=== PATIENT | male | born 1960 | race Caucasian/White ===

== ENCOUNTER 2017-09-27 19:55 | Inpatient (IN) ==
[2017-09-27] MEDS ORDERED: Ipratropium/Albuterol Neb 3 ML IH ONE (20:22)
[2017-09-27] MEDS ORDERED: methylPREDNISolone 125 MG/2 ML VIAL IVP ONE (20:22)
[2017-09-27 20:50] LABS: Basophils % 0.4 %; Eosinophils % 0.4 %; Hematocrit 45.6 % (37.5-50.1); Hemoglobin 15.5 g/dL (12.9-16.9); Immature Granulocytes % 0.8 % (0-4); Lymphocytes # 0.6 K/mcL (0.6-4.6); Lymphocytes % 11.6 %; Mean Corpuscular Hemoglobin 30.8 pg (28.0-33.3); Mean Corpuscular Volume 90.5 fL (83.0-100.0); Mean Platelet Volume 10.6 fL (9.4-12.4); Monocytes # 0.7 K/mcL (0.0-1.3); Monocytes % 13.5 %; Neutrophils # 3.8 K/mcL (1.6-8.9); Platelet Count 150 K/mcL (140-400); Red Blood Count 5.04 M/mcL (4.19-5.50); Red Cell Distribution Width 12.1 % (11.5-14.5); Segmented Neutrophils % 73.3 %
[2017-09-27] MEDS ORDERED: 0.9 % Sodium Chloride 1,000 ML IVC ONE (20:54)
[2017-09-27 21:11] LABS: BUN/Creatinine Ratio 12 (6-26); Blood Urea Nitrogen 11 mg/dL (6-20); Calcium 8.2 mg/dL (8.6-10.3); Chloride 96 mEq/L (98-107); Glucose 340 mg/dL (70-105); Osmolality,Calculated 283 (280-300); Potassium 3.3 mEq/L (3.5-5.1); Sodium 130 mEq/L (136-145); eGFR For African Americans > 60 (> 60); eGFR For Non-African Americans > 60 (> 60)
--- NOTE | 2017-09-27 22:15 | Emergency Department Note ---
Disposition Clinical Impression: Acute exacerbation of chronic obstructive airways disease, Acute respiratory failure Disposition: Admitted As Inpatient Condition: Fair Time of Disposition: 23:39 SOB HPI - General Chief Complaint: ED Shortness of Breath/Dyspnea Stated Complaint: "chest tightness, sob, dizziness" Source: EMS Limitations: no limitations Nursing Notes Reviewed: Yes Vital Signs Reviewed: Yes - History of Present Illness Mr. Baltazar, 56-year-old male, presents from home for evaluation of dyspnea. Onset 3 days ago progressive. Now includes intermittent lightheadedness (no syncope) and chest tightness. Patient denies chest pain. Patient has history of COPD and has dyspnea with exertion. Not improved with his home inhalers. At baseline, patient uses nose a little oxygen. ROS: Positive: As above Negative: Fever, chills, nausea, vomiting, chest pain, palpitations, unusual back pain, changes in bowel or bladder - Related Data Allergies Allergy/AdvReac Type Severity Reaction Status Date / Time gabapentin Allergy Rash Verified 09/27/17 20:06 NSAIDS (Non-Steroidal Allergy Itching Verified 09/27/17 20:08 Anti-Inflamma amantadine [From Symmetrel] AdvReac Hallucinati Verified 09/27/17 20:09 ng All systems ED: reviewed and negative except as stated. Past Medical History - Past Medical History Medical history: Reports: COPD Psychiatric history: Reports: anxiety, depression, PTSD - Social History Smoking Status: Current every day smoker Smokeless Tobacco Status: No Alcohol use: Reports: none Drug use: Reports: none Physical Exam Vital Signs Reviewed General: Patient is alert, oriented, and in moderate distress-he is tachypneic and diaphoretic. HEENT: No facial asymmetry. Head is normocephalic and atraumatic. PERRLA, EOMI. oral mucosa moist. Trachea midline. Cardiovascular: Heart regular rate and rhythm without clicks, rubs, gallops, or murmurs. No JVD. PMI nondisplaced. Bilateral radial pulses 2/4 equal. No pedal edema. Respiratory: Symmetric chest rise with good respiratory effort. Prolonged expiratory phase. Bilateral breath sounds have scattered wheeze with no crackles or rhonchi. Abdomen: Obese. Bowel sounds present normoactive x-4 quadrants. Abdomen is soft, nondistended, and nontender. Musculoskeletal: Spontaneously moving all extremities. Neuro: Alert and oriented x4. Sensation light touch intact. Psych: Patient's affect is appropriate for situation. - General Limitations: no limitations General appearance: alert Course Course Narrative: Patient presents in mild respiratory distress. He appears diaphoretic-he explains this as having worn his coat in the back of a hot ambulance. After a double dose of duo nebs, patient symptomatically feels no different however his lung sounds have improved. He is requiring 3 L nasal cannula supplemental oxygen. When laying in bed on room air, he desaturates to 89%. He has no home oxygen. Pneumonia unlikely in the setting of an unremarkable chest x-ray, no crackles on pulmonary exam, no fever. Patient is agreeable to admission for continued pulmonary support for acute exacerbation of COPD. I discussed the patient with the admitting hospitalist, Dr. Freeman, who agrees to accept the patient for continued evaluation and management. Chest X-Ray 09/27/17 20:22 IMPRESSION: No acute process. D/ / Wili Dial MD / Wili Dial MD Interpreting Provider: Wili Dial MD Vital Signs Temperature 98.7 F 09/27/17 20:10 Pulse Rate 110 09/27/17 20:10 Respiratory Rate 20 09/27/17 20:10 Blood Pressure 106/69 09/27/17 20:10 O2 Sat by Pulse Oximetry 96 09/27/17 20:10 Temperature 98.7 F 09/27/17 20:10 Pulse Rate 94 09/27/17 22:00 Respiratory Rate 16 09/27/17 23:34 Blood Pressure 116/71 09/27/17 23:34 O2 Sat by Pulse Oximetry 96 09/27/17 22:00 Oxygen Delivery Oxygen Delivery Nasal Cannula Shortness of Breath/Dyspnea - Lab Data Lab results reviewed: Yes I reviewed the patient's lab results. Result diagrams: 09/27/17 20:37 09/27/17 20:37 Lab Results 09/27/17 09/27/17 09/27/17 Range/Units 20:37 20:37 20:37 WBC 5.2 (4.3-11.1) K/mcL RBC 5.04 (4.19-5.50) M/mcL Hgb 15.5 (12.9-16.9) g/dL Hct 45.6 (37.5-50.1) % MCV 90.5 (83.0-100.0) fL MCH 30.8 (28.0-33.3) pg MCHC 34.0 (31.6-35.5) g/dL RDW 12.1 (11.5-14.5) % Plt Count 150 (140-400) K/mcL MPV 10.6 (9.4-12.4) fL Immature Gran % 0.8 (0-4) % Seg Neutrophils % 73.3 % Lymphocytes % 11.6 % Monocytes % 13.5 % Eosinophils % 0.4 % Basophils % 0.4 % Neutrophils # 3.8 (1.6-8.9) K/mcL Lymphocytes # 0.6 (0.6-4.6) K/mcL Monocytes # 0.7 (0.0-1.3) K/mcL Eosinophils # 0.0 (0.0-0.6) K/mcL Basophils # 0.0 (0.0-0.2) K/mcL Sodium 130 L (136-145) mEq/L Potassium 3.3 L (3.5-5.1) mEq/L Chloride 96 L (98-107) mEq/L Carbon Dioxide 23 (23-29) mEq/L BUN 11 (6-20) mg/dL Creatinine 0.89 (0.70-1.30) mg/dL Est GFR ( Amer) > 60 (> 60) Est GFR (Non-Af Amer) > 60 (> 60) BUN/Creatinine Ratio 12 (6-26) Glucose 340 H (70-105) mg/dL Calculated Osmolality 283 (280-300) Lactic Acid 1.9 (0.5-2.2) mmol/L Calcium 8.2 L (8.6-10.3) mg/dL Troponin I (< 0.04) ng/mL B-Natriuretic Peptide (Less than 100) pg/mL 09/27/17 09/27/17 Range/Units 20:37 20:37 WBC (4.3-11.1) K/mcL RBC (4.19-5.50) M/mcL Hgb (12.9-16.9) g/dL Hct (37.5-50.1) % MCV (83.0-100.0) fL MCH (28.0-33.3) pg MCHC (31.6-35.5) g/dL RDW (11.5-14.5) % Plt Count (140-400) K/mcL MPV (9.4-12.4) fL Immature Gran % (0-4) % Seg Neutrophils % % Lymphocytes % % Monocytes % % Eosinophils % % Basophils % % Neutrophils # (1.6-8.9) K/mcL Lymphocytes # (0.6-4.6) K/mcL Monocytes # (0.0-1.3) K/mcL Eosinophils # (0.0-0.6) K/mcL Basophils # (0.0-0.2) K/mcL Sodium (136-145) mEq/L Potassium (3.5-5.1) mEq/L Chloride (98-107) mEq/L Carbon Dioxide (23-29) mEq/L BUN (6-20) mg/dL Creatinine (0.70-1.30) mg/dL Est GFR ( Amer) (> 60) Est GFR (Non-Af Amer) (> 60) BUN/Creatinine Ratio (6-26) Glucose (70-105) mg/dL Calculated Osmolality (280-300) Lactic Acid (0.5-2.2) mmol/L Calcium (8.6-10.3) mg/dL Troponin I < 0.03 (< 0.04) ng/mL B-Natriuretic Peptide 14 (Less than 100) pg/mL - Radiology Data Radiology results reviewed: Yes I reviewed the patient's radiology results. - EKG Data EKG attestation: Yes I reviewed and interpreted this EKG. Attestation Statement - Attestation Attestation: I, Mode Anderson, examined this patient and my medical decision-making was reviewed with the ELECTRIC METER INSTALLER HELPER/PA/Advanced Practice Nurse/Resident Physician. I agree with the documented findings, disposition and treatment plan as described except to the extent set forth below. 56-year-old male presents emergency department with acute onset shortness of breath. Symptoms have have been worsening over the past 3 days. Symptoms feel similar to previous COPD exacerbations. Patient does have wheezing on bilateral posterior lung marie on initial evaluation. Wheezing improved with DuoNeb to the emergency department however it is still present. Patient does not wear oxygen at home however he is satting 89% the emergency department. Initial troponin was negative. Patient will be admitted to the hospital for further care and evaluation.
[2017-09-27 23:13] LABS: Carbon Dioxide 23 mEq/L (23-29)
[2017-09-28] MEDS ORDERED: D5% in Water 1,000 ML IVC PRN (02:21)
[2017-09-28] MEDS ORDERED: Dextrose Gel 15 GM/37.5 ML TUBE PO PRN ×2 (02:21)
[2017-09-28] MEDS ORDERED: Ipratropium/Albuterol Neb 3 ML IH PRN (02:21)
[2017-09-28] MEDS ORDERED: Naloxone 0.4 MG/ML INJ IVP PRN (02:21)
[2017-09-28] MEDS ORDERED: *HR* Dextrose 50 % in Water (Syg) 50 ML SYRINGE IVP PRN (02:21)
[2017-09-28] MEDS ORDERED: NON-FORMULARY MEDICATION 1 EACH EACH (Quetiapine Fumarate [Seroquel] 400 MG) PO SCH (02:30)
[2017-09-28] MEDS: *HR* OxyCODONE Immed Rel 15 MG TABLET PO PRN ×3 (03:01→20:05)
[2017-09-28] MEDS: clonazePAM 1 MG TABLET PO PRN ×3 (03:01→20:05)
--- NOTE | 2017-09-28 03:02 | Internal Med History&Physical ---
<Fidencio Garcia - Last Filed: 09/28/17 02:42> Date of Encounter: 09/28/17 Time of Encounter: 01:00 Assessment and Plan (1) Acute respiratory failure Current visit: Yes Status: Acute Hypoxia resolved with O2 administration CXR without acute disease EKG, troponin, lactic acid, and BNP normal Ordered Influenza A and B PCR Continue monitoring and supplemental O2 Treating for COPD exacerbation Qualifiers: Respiratory failure complication: hypoxia Qualified Code(s): J96.01 - Acute respiratory failure with hypoxia (2) Acute exacerbation of chronic obstructive airways disease Current visit: Yes Status: Acute Hypoxia improved with O2 administration Wheezing improved with duonebs and steroids Treating with solu-medrol q6h and breathing treatments as needed Levofloxacin 500 mg iv Supplemental O2 (3) Hypokalemia Current visit: Yes Status: Acute Ordered PO potassium 40 meq once Will monitor (4) PTSD (post-traumatic stress disorder) Current visit: Yes Status: Chronic Stable Continue home medications (5) Anxiety Current visit: Yes Status: Chronic Stable Continue home medications (6) Hypothyroidism Current visit: Yes Status: Chronic Stable Continue home levothyroxine Qualifiers: Hypothyroidism type: unspecified Qualified Code(s): E03.9 - Hypothyroidism , unspecified (7) Tobacco abuse Current visit: Yes Status: Acute Long history, between 40 and 100 pack years Advised complete cessation now that patient has not been able to smoke for a few days Gave patient flyer with number for LDCT lung cancer screening (8) Alcohol abuse, in remission Current visit: Yes Status: Acute Used to drink up to a case per day Strong family history Patient reports last drink in 2011 Ordered CIWA (9) DVT prophylaxis Current visit: Yes Status: Acute Heparin subq q12h Internal Medicine - H&P: HPI Chief complaint: SOB Admitted From: Home Plans for Post Hospital Care: Home History of present illness: Mr. Baltazar is a 56 year old male who presented with worsening shortness of breath that started on Tuesday. In the three days prior to this, the patient complained of "flu symptoms" including cough, myalgias, subjective fever, and chills. He had no substantial SOB at this time. Those symptoms began resolving on their own before the SOB started. His home albuterol did help somewhat. He complained of additional symptoms of chest tightness over the last day and wheezing over the past week. He decided to report to the ER after walking to the bathroom caused a severe amount of dyspnea. He denies chest pain and palpitations. Once in the ER, he was found to be hypoxemic into the 80s and was placed on supplemental O2 at 4L, which improved his O2 saturation. He received 2 breathing treatments, which he says have not improved his SOB substantially but decreased his wheezing. He was down to 2L/min when I spoke with him. His PMH is significant for COPD not requiring home oxygen, hypothryoidism, PTSD , anxiety, and spinal stenosis. He has been smoking for 40+ years, between 1-2.5 ppd. He also has a history of alcoholism, drinking up to 1 case per day, though this is in remission, with his last drink in 2011. Past Med Surg Social Fam HX - Past Medical History Medical history: COPD Psychiatric history: anxiety, depression, PTSD - Past Surgical History Surgical History: cholecystectomy - Social History Smoking Status: Current every day smoker Packs per day: 1 Smokeless Tobacco Status: No Alcohol use: none Drug use: none - Family History Grandmother Hx Family Cardiac Disorders: Yes Hx Family Endocrine Disorder: Yes (DM) Mother Living Status: Age at : 60 Hx Family Respiratory Disorders: Yes (emphysema) Internal Medicine - H&P: Meds FLUoxetine HCl [Prozac] 40 mg PO BID 09/28/17 [History] Levothyroxine [Synthroid] 175 mcg PO DAILY 09/28/17 [History] OxyCODONE Immed Rel [Roxicodone 15 MG] 15 mg PO Q8HR PRN 09/28/17 [History] Quetiapine Fumarate [Seroquel] 400 mg PO DAILY 09/28/17 [History] clonazePAM [Klonopin] 1 mg PO TID PRN 09/28/17 [History] 3 Allergy/AdvReac Type Severity Reaction Status Date / Time gabapentin Allergy Rash Verified 09/27/17 20:06 NSAIDS (Non-Steroidal Allergy Itching Verified 09/27/17 20:08 Anti-Inflamma amantadine [From Symmetrel] AdvReac Hallucinati Verified 09/27/17 20:09 ng All Systems PM: A 10-system review of systems was performed and is negative for pertinent findings except as documented above in the HPI. Review of systems: As per HPI - Constitutional Vitals: Temp Pulse Resp BP Pulse Ox 98.1 F 90 17 137/85 94 09/27/17 23:50 09/27/17 23:50 09/27/17 23:50 09/27/17 23:50 09/27/17 23:50 General appearance: Present: cooperative, A&O X 3, pleasant, no acute distress, obese, answers questions appropriately - Head Head exam: Present: atraumatic, normal inspection, normocephalic - ENT ENT exam: Present: mucous membranes moist - Neck Neck exam general surgery: Present: trachea midline - Respiratory Respiratory exam: Present: decreased breath sounds, wheezes (few, scattered). Absent: accessory muscle use, rales, respiratory distress, rhonchi - Cardiovascular Cardiovascular exam: Present: RRR, +S1, +S2 - GI/Abdominal GI/Abdominal exam: Present: soft, no peritoneal signs - Extremities Exam Extremities exam: Absent: pedal edema - Psychiatric Psychiatric exam: Present: normal affect, normal mood. Absent: agitated, anxious - Skin Skin exam: Present: dry, warm Internal Med - H&P Results - Labs CBC & Chem 7: 09/27/17 20:37 09/27/17 20:37 <Alex Freeman - Last Filed: 09/28/17 06:33> Date of Encounter: 09/28/17 Time of Encounter: 05:45 Past Med Surg Social Fam HX - Past Medical History Attestation: Yes The following information was validated with the patient. Source: patient, old records reviewed Medical history: COPD - Past Surgical History Surgical History: cholecystectomy - Social History Smoking Status: Current every day smoker Alcohol use: none Drug use: none Current living situation: Home, With Family Activity Level: Independent ambulation - Constitutional Vitals: Temp Pulse Resp BP Pulse Ox 98.4 F 89 17 116/75 92 09/28/17 02:38 09/28/17 02:38 09/28/17 02:38 09/28/17 02:38 09/28/17 02:38 General appearance: Present: cooperative, mild distress, A&O X 3, pleasant, answers questions appropriately - Head Head exam: Present: atraumatic, normal inspection - Eye Eye exam: Present: EOMI, PERRL. Absent: scleral icterus Pupils: Present: normal accommodation - ENT ENT exam: Present: mucous membranes dry, normal exam - Neck Neck exam general surgery: Present: full ROM, supple. Absent: tenderness, nuchal rigidity - Respiratory Respiratory exam: Present: accessory muscle use, decreased breath sounds, prolonged expiratory phase, respiratory distress, wheezes (tight diffuse wheezes ), tachypnea - Cardiovascular Cardiovascular exam: Present: distant heart sounds, RRR, +S1, +S2. Absent: diastolic murmur, systolic murmur - GI/Abdominal GI/Abdominal exam: Present: normal bowel sounds, soft. Absent: hepatomegaly, mass, splenomegaly, tenderness - Extremities Exam Extremities exam: Present: normal capillary refill, warm, radial pulses palpable and symmetrical. Absent: calf tenderness, tenderness - Back Exam Back exam: Absent: CVA tenderness (L), CVA tenderness (R) - Neurological Exam Neurological exam: Present: alert, CN II-XII intact, oriented X3, no focal deficits - Psychiatric Psychiatric exam: Present: normal affect, normal mood - Skin Skin exam: Present: dry, warm. Absent: rash Internal Med - H&P Results - Labs CBC & Chem 7: 09/27/17 20:37 09/27/17 20:37 - EKG Data -: EKG Interpreted by Myself - EKG Data Prior EKG available for review: yes EKG comments: 09/28/17 06:20 Sinus tachycardia; initial EKG by EMS suggests SVT - Diagnostic Studies Chest x-ray Status: image reviewed by me (negative) - Attending Attestation I discussed patient [place], PMH, ROS, lab data, and exam findings with Dr. Garcia. I then saw and examined patient independently as well. Patient is working a little hard to breathe, but he feels much better on oxygen and after several aerosols. If he exerts himself, however, he starts coughing, wheezing, and develops profound dyspnea. I asked Dr. Garcia to order Influenza testing, and he is + for Influenza A. I will add Tamiflu to his regimen. Meanwhile, we' ll continue treatment measures as detailed by Dr. Garcia. Other than my comments above and noted exam findings, I agree with Dr. Garcia' s assessment and plan.
[2017-09-28] MEDS ORDERED: *HR* LORazepam 2 MG/ML VIAL IVP PRN ×3 (04:12)
[2017-09-28 05:51] LABS: Influenza A PCR Positive (Negative); Influenza B PCR Negative (Negative); Resp. Syncytial Virus PCR Negative (Negative)
[2017-09-28] MEDS: *HR* Heparin 5,000 UNIT/ML VIAL SQ SCH ×2 (06:14→18:02)
[2017-09-28] MEDS: MethylPREDNISolone 40 MG/ML VIAL IVP SCH ×4 (06:14→23:10)
[2017-09-28 06:31] LABS: Hematocrit 42.9 % (37.5-50.1); Hemoglobin 14.6 g/dL (12.9-16.9); Mean Corpuscular Hemoglobin 31.1 pg (28.0-33.3); Mean Corpuscular Volume 91.5 fL (83.0-100.0); Mean Platelet Volume 11.2 fL (9.4-12.4); Platelet Count 138 K/mcL (140-400); Red Blood Count 4.69 M/mcL (4.19-5.50); Red Cell Distribution Width 12.3 % (11.5-14.5)
[2017-09-28 07:00] LABS: BUN/Creatinine Ratio 12 (6-26); Blood Urea Nitrogen 10 mg/dL (6-20); Calcium 8.1 mg/dL (8.6-10.3); Carbon Dioxide 29 mEq/L (23-29); Chloride 94 mEq/L (98-107); Glucose 414 mg/dL (70-105); Osmolality,Calculated 285 (280-300); Potassium 4.2 mEq/L (3.5-5.1); Sodium 129 mEq/L (136-145); eGFR For African Americans > 60 (> 60); eGFR For Non-African Americans > 60 (> 60)
[2017-09-28] MEDS: Levofloxacin 500 MG/100 ML 500 MG/100 ML BAG IVPB SCH (09:06)
[2017-09-28] MEDS: FLUoxetine 20 MG CAPSULE PO SCH ×2 (09:06→20:05)
[2017-09-28] MEDS: Insulin LISPRO 300 UNITS/3 ML VIAL SQ SCH ×3 (09:22→18:03)
--- NOTE | 2017-09-28 14:27 | Electrocardiograph Report ---
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
--- NOTE | 2017-09-28 19:41 | Internal Med Progress Note ---
Date of Encounter: 09/28/17 Time of Encounter: 18:00 - Assessment and plan (1) Acute respiratory failure Current Visit: Yes Status: Acute Assessment and plan: Patient presented with hypoxia S PO2 80%. Most likely related to COPD exacerbation as well as influenza. We will continue with oxygen titrated to maintain SPO2 greater than 92% Qualifiers: Respiratory failure complication: hypoxia Qualified Code(s): J96.01 - Acute respiratory failure with hypoxia (2) Influenza A Current Visit: Yes Status: Acute Assessment and plan: Patient's influenza swab was positive for influenza A. He has been experiencing chills and malaise cough shortness of breath. Patient has been initiated on Tamiflu and will continue for the next 10 days We will continue with oxygen maintaining SPO2 greater than 92% Integument bronchodilators With Tylenol for fever and myalgia (3) Acute exacerbation of chronic obstructive airways disease Current Visit: Yes Status: Acute Assessment and plan: Patient has been experiencing wheezing and hypoxia will continue with bronchodilators as well as oxygen patient continues to have SPO2 93% on 2 L normally he does not require oxygen supplementation Continue with Solu-Medrol IV Continue Levaquin (4) Tobacco abuse Current Visit: Yes Status: Acute Assessment and plan: Encouraged patient to stop smoking offered nicotine patch but patient declined at this time. (5) Anxiety Current Visit: Yes Status: Chronic Assessment and plan: We will continue with home medications (6) DVT prophylaxis Current Visit: Yes Status: Chronic Assessment and plan: Heparin subcutaneous - Time Spent With Patient less than 15 minutes - Subjective Interval history: Patient initially presented with worsening shortness of breath that started on Tuesday he also had flulike symptoms with general malaise and cough. He was hypoxic on presentation with SPO2 in the 80s and requiring supplemental oxygen he normally does not require oxygen. He is a smoker he does have a history of alcoholism however he has not drink since 2011. Influenza swab was positive for influenza A Presently patient denies any shortness of breath he has a nonproductive cough he continues to require oxygen supplementation with SPO2 only 93-94% on 2 L nasal cannula. - Constitutional Vitals: Temp Pulse Resp BP Pulse Ox 97.3 F L 92 20 145/93 93 09/28/17 19:31 09/28/17 19:31 09/28/17 19:31 09/28/17 19:31 01/31/18 19:31 General appearance: Present: cooperative, mild distress, A&O X 3, pleasant, answers questions appropriately - Head Head exam: Present: atraumatic, normocephalic - Eye Eye exam: Present: PERRL, conjuntiva pink, sclera anicteric Pupils: Present: PERRL - Respiratory Respiratory exam: Present: wheezes. Absent: accessory muscle use, rales, rhonchi - Cardiovascular Cardiovascular exam: Present: RRR, +S1, +S2. Absent: diastolic murmur, gallop, rubs, systolic murmur - GI/Abdominal GI/Abdominal exam: Present: normal bowel sounds, soft, no peritoneal signs. Absent: distended, tenderness - Extremities Exam Extremities exam: Present: warm, radial pulses palpable and symmetrical. Absent : calf tenderness, cyanotic, pedal edema - Neurological Exam Neurological exam: Present: CN II-XII intact, oriented X3, no focal deficits. Absent: pronater drift, facial droop, speech deficit - Skin Skin exam: Present: dry, intact Internal Medicine: Result - Labs CBC & Chem 7: 09/28/17 05:20 09/28/17 05:20 Labs: Short CBC 09/28/17 Range/Units 05:20 WBC 2.2 L D (4.3-11.1) K/mcL Hgb 14.6 (12.9-16.9) g/dL Hct 42.9 (37.5-50.1) % Plt Count 138 L (140-400) K/mcL BMP 09/28/17 05:20 Sodium 129 L Potassium 4.2 D Chloride 94 L Carbon Dioxide 29 BUN 10 Creatinine 0.86 Glucose 414 H Calcium 8.1 L Consult Discharge Plan - Plan Referrals: Tammy Bullock, HEALTH EDUCATION AIDE [Primary Care Provider] -
[2017-09-28] MEDS ORDERED: Insulin LISPRO 300 UNITS/3 ML VIAL SQ SCH (21:00)
[2017-09-29] MEDS: clonazePAM 1 MG TABLET PO PRN ×2 (04:08→13:11)
[2017-09-29] MEDS: *HR* OxyCODONE Immed Rel 15 MG TABLET PO PRN ×2 (04:08→13:10)
[2017-09-29] MEDS: *HR* Heparin 5,000 UNIT/ML VIAL SQ SCH ×2 (05:34→18:02)
[2017-09-29] MEDS: MethylPREDNISolone 40 MG/ML VIAL IVP SCH ×3 (05:34→18:01)
[2017-09-29] MEDS: FLUoxetine 20 MG CAPSULE PO SCH ×2 (08:15→21:22)
[2017-09-29] MEDS: Levofloxacin 500 MG/100 ML 500 MG/100 ML BAG IVPB SCH (08:15)
[2017-09-29] MEDS: Insulin LISPRO 300 UNITS/3 ML VIAL SQ SCH ×5 (08:26→21:23)
[2017-09-29 09:10] LABS: Basophils % 0.1 %; Hematocrit 45.7 % (37.5-50.1); Hemoglobin 14.9 g/dL (12.9-16.9); Immature Granulocytes % 0.5 % (0-4); Lymphocytes # 1.1 K/mcL (0.6-4.6); Lymphocytes % 14.6 %; Mean Corpuscular HGB Conc 32.6 g/dL (31.6-35.5); Mean Corpuscular Hemoglobin 30.6 pg (28.0-33.3); Mean Corpuscular Volume 93.8 fL (83.0-100.0); Mean Platelet Volume 10.9 fL (9.4-12.4); Monocytes # 0.5 K/mcL (0.0-1.3); Monocytes % 7.1 %; Neutrophils # 5.8 K/mcL (1.6-8.9); Platelet Count 174 K/mcL (140-400); Red Blood Count 4.87 M/mcL (4.19-5.50); Red Cell Distribution Width 12.1 % (11.5-14.5); Segmented Neutrophils % 77.7 %
[2017-09-29 11:44] LABS: BUN/Creatinine Ratio 23 (6-26); Blood Urea Nitrogen 21 mg/dL (6-20); Calcium 8.7 mg/dL (8.6-10.3); Carbon Dioxide 25 mEq/L (23-29); Chloride 98 mEq/L (98-107); Glucose 415 mg/dL (70-105); Osmolality,Calculated 297 (280-300); Potassium 4.2 mEq/L (3.5-5.1); Sodium 133 mEq/L (136-145); eGFR For African Americans > 60 (> 60); eGFR For Non-African Americans > 60 (> 60)
--- NOTE | 2017-09-29 19:42 | Internal Med Progress Note ---
Date of Encounter: 09/29/17 Time of Encounter: 11:00 - Assessment and plan (1) Acute respiratory failure Current Visit: Yes Status: Acute Assessment and plan: Patient continues to have hypoxia on room air with SPO2 80s. Most likely related to COPD exacerbation as well as influenza. We will continue with oxygen titrated to maintain SPO2 greater than 92% 6 minute walk test for home oxygen qualification Qualifiers: Respiratory failure complication: hypoxia Qualified Code(s): J96.01 - Acute respiratory failure with hypoxia (2) Influenza A Current Visit: Yes Status: Acute Assessment and plan: Tamiflu day 3 will continue for the next 10 days We will continue with oxygen maintaining SPO2 greater than 92% Continue bronchodilators Tylenol for fever and myalgia (3) Acute exacerbation of chronic obstructive airways disease Current Visit: Yes Status: Acute Assessment and plan: Wheezing improved however hypoxia continues- will continue with bronchodilators as well as oxygen patient continues to have SPO2 93% on 2 L normally he does not require oxygen supplementation-6 minute walk test Continue with Solu-Medrol IV Continue Levaquin (4) Tobacco abuse Current Visit: Yes Status: Acute Assessment and plan: Encouraged patient to stop smoking offered nicotine patch but patient declined at this time. (5) Anxiety Current Visit: Yes Status: Chronic Assessment and plan: We will continue with home medications (6) DVT prophylaxis Current Visit: Yes Status: Chronic Assessment and plan: Heparin subcutaneous - Time Spent With Patient less than 15 minutes - Subjective Interval history: Patient continues to require oxygen supplementation. SPO2 is dropping down to the 80s without oxygen. His lung sounds have improved no wheezing noted He denies any chest pain shortness of breath he states he feels very fatigued and achy. He does have nonproductive cough He is hemodynamically stable at this time - Constitutional Vitals: Temp Pulse Resp BP Pulse Ox 97.8 F 95 16 145/77 93 09/29/17 15:56 09/29/17 15:56 09/29/17 15:56 09/29/17 15:56 09/29/17 15:56 General appearance: Present: cooperative, mild distress, A&O X 3, pleasant, answers questions appropriately - Head Head exam: Present: atraumatic, normocephalic - Eye Eye exam: Present: PERRL, conjuntiva pink, sclera anicteric Pupils: Present: PERRL - Neck Neck exam general surgery: Present: supple, trachea midline. Absent: lymphadenopathy - Respiratory Respiratory exam: Present: CTAB. Absent: accessory muscle use, rales, rhonchi, wheezes - Cardiovascular Cardiovascular exam: Present: RRR, +S1, +S2. Absent: diastolic murmur, gallop, rubs, systolic murmur - GI/Abdominal GI/Abdominal exam: Present: normal bowel sounds, soft, no peritoneal signs. Absent: distended, tenderness - Extremities Exam Extremities exam: Present: warm, radial pulses palpable and symmetrical. Absent : calf tenderness, cyanotic, pedal edema - Neurological Exam Neurological exam: Present: CN II-XII intact, oriented X3, no focal deficits. Absent: pronater drift, facial droop, speech deficit - Skin Skin exam: Present: dry, intact Internal Medicine: Result - Labs CBC & Chem 7: 09/29/17 08:51 09/29/17 10:42 Labs: Short CBC 09/29/17 Range/Units 08:51 WBC 7.5 D (4.3-11.1) K/mcL Hgb 14.9 (12.9-16.9) g/dL Hct 45.7 (37.5-50.1) % Plt Count 174 (140-400) K/mcL Neutrophils # 5.8 (1.6-8.9) K/mcL BMP 09/29/17 10:42 Sodium 133 L Potassium 4.2 Chloride 98 Carbon Dioxide 25 BUN 21 H Creatinine 0.93 Glucose 415 H Calcium 8.7 Consult Discharge Plan - Plan Referrals: Tammy Bullock CNP [Primary Care Provider] - 10/06/17 9:00 am
[2017-09-30] MEDS: clonazePAM 1 MG TABLET PO PRN ×3 (00:16→16:50)
[2017-09-30] MEDS: *HR* OxyCODONE Immed Rel 15 MG TABLET PO PRN ×3 (00:16→16:50)
[2017-09-30] MEDS: MethylPREDNISolone 40 MG/ML VIAL IVP SCH ×4 (00:16→17:00)
[2017-09-30] MEDS: *HR* Heparin 5,000 UNIT/ML VIAL SQ SCH ×2 (06:11→16:59)
[2017-09-30] MEDS: Levofloxacin 500 MG/100 ML 500 MG/100 ML BAG IVPB SCH (08:28)
[2017-09-30] MEDS: FLUoxetine 20 MG CAPSULE PO SCH ×2 (08:28→21:25)
[2017-09-30] MEDS: Insulin LISPRO 300 UNITS/3 ML VIAL SQ SCH ×5 (08:30→21:37)
[2017-09-30] MEDS: Ipratropium/Albuterol Neb 3 ML IH SCH ×3 (15:52→23:04)
[2017-09-30 16:16] LABS: Hematocrit 42.1 % (37.5-50.1); Hemoglobin 13.8 g/dL (12.9-16.9); Mean Corpuscular HGB Conc 32.8 g/dL (31.6-35.5); Mean Corpuscular Hemoglobin 30.5 pg (28.0-33.3); Mean Corpuscular Volume 92.9 fL (83.0-100.0); Platelet Count 171 K/mcL (140-400); Red Blood Count 4.53 M/mcL (4.19-5.50); Red Cell Distribution Width 12.1 % (11.5-14.5)
[2017-09-30 16:39] LABS: BUN/Creatinine Ratio 19 (6-26); Blood Urea Nitrogen 18 mg/dL (6-20); Calcium 8.7 mg/dL (8.6-10.3); Carbon Dioxide 31 mEq/L (23-29); Chloride 98 mEq/L (98-107); Glucose 352 mg/dL (70-105); Osmolality,Calculated 294 (280-300); Potassium 4.8 mEq/L (3.5-5.1); Sodium 134 mEq/L (136-145); eGFR For African Americans > 60 (> 60); eGFR For Non-African Americans > 60 (> 60)
[2017-09-30 16:55] LABS: Lymphocytes # 1.5 K/mcL (0.6-4.6); Monocytes # 0.4 K/mcL (0.0-1.3); Neutrophils # 8.6 K/mcL (1.6-8.9); Platelet Estimate Normal (Normal)
[2017-09-30 16:56] LABS: Reactive Lymphocytes Present (Not Present)
--- NOTE | 2017-09-30 17:11 | Internal Med Progress Note ---
Date of Encounter: 09/30/17 Time of Encounter: 15:00 - Assessment and plan (1) Acute respiratory failure Current Visit: Yes Status: Acute Assessment and plan: Patient continues to have hypoxia on room air with SPO2 80s. Most likely related to COPD exacerbation as well as influenza. Patient drop in SPO2 without oxygen at rest and on ambulation he becomes extremely short of breath he will require home oxygen upon discharge Qualifiers: Respiratory failure complication: hypoxia Qualified Code(s): J96.01 - Acute respiratory failure with hypoxia (2) Influenza A Current Visit: Yes Status: Acute Assessment and plan: Tamiflu day 4 will continue for the next 10 days We will continue with oxygen maintaining SPO2 greater than 92% Continue bronchodilators Tylenol for fever and myalgia (3) Acute exacerbation of chronic obstructive airways disease Current Visit: Yes Status: Acute Assessment and plan: No wheezing noted at this time however hypoxia continues- will continue with bronchodilators as well as oxygen patient continues to have SPO2 93% on 2 L normally he does not require oxygen supplementation-failed 6 minute walk test Continue with Solu-Medrol IV Continue Levaquin Duo nebs every 4 hours We will obtain chest x-ray rule out any possible pulmonary edema (4) Tobacco abuse Current Visit: Yes Status: Chronic Assessment and plan: Encouraged patient to stop smoking offered nicotine patch but patient declined at this time. (5) Anxiety Current Visit: Yes Status: Chronic Assessment and plan: We will continue with home medications (6) DVT prophylaxis Current Visit: Yes Status: Chronic Assessment and plan: Heparin subcutaneous (7) Diabetes mellitus Current Visit: No Status: Chronic Assessment and plan: We hold metformin for now Accu-Cheks before meals at bedtime sliding scale insulin high-dose due to steroid use. He continues to have blood sugars 300 we will add basal insulin as well as a nutritional coverage for now while receiving steroids Qualifiers: Diabetes mellitus type: type 2 Diabetes mellitus complication status: without complication Diabetes mellitus assisted insulin use: without assisted use Qualified Code(s): E11.9 - Type 2 diabetes mellitus without complications - Time Spent With Patient less than 15 minutes - Subjective Interval history: Patient continues to require supplemental oxygen he becomes very hypoxic and short of breath without it during ambulation. Sats dropped down to 80s. His lung sounds have improved no wheezing he does state that he has occasional wheezes shortness of breath on exertion dry nonproductive cough and fatigue. He denies any chest pain at this time sats continued to be 90 and 92% on 2 L nasal cannula - Constitutional Vitals: Temp Pulse Resp BP Pulse Ox 97.6 F 84 18 152/89 92 09/30/17 15:42 09/30/17 15:42 09/30/17 15:55 09/30/17 15:42 09/30/17 15:55 General appearance: Present: cooperative, mild distress, A&O X 3, pleasant, answers questions appropriately - Head Head exam: Present: atraumatic, normocephalic - Eye Eye exam: Present: PERRL, conjuntiva pink, sclera anicteric Pupils: Present: PERRL - Neck Neck exam general surgery: Present: supple, trachea midline. Absent: lymphadenopathy - Respiratory Respiratory exam: Present: CTAB. Absent: accessory muscle use, rales, rhonchi, wheezes - Cardiovascular Cardiovascular exam: Present: RRR, +S1, +S2. Absent: diastolic murmur, gallop, rubs, systolic murmur - GI/Abdominal GI/Abdominal exam: Present: normal bowel sounds, soft, no peritoneal signs. Absent: distended, tenderness - Extremities Exam Extremities exam: Present: warm, radial pulses palpable and symmetrical. Absent : calf tenderness, cyanotic, pedal edema - Neurological Exam Neurological exam: Present: CN II-XII intact, oriented X3, no focal deficits. Absent: pronater drift, facial droop, speech deficit - Skin Skin exam: Present: dry, intact Internal Medicine: Result - Labs CBC & Chem 7: 09/30/17 15:58 09/30/17 15:58 Labs: Short CBC 09/30/17 Range/Units 15:58 WBC 10.7 (4.3-11.1) K/mcL Hgb 13.8 (12.9-16.9) g/dL Hct 42.1 (37.5-50.1) % Plt Count 171 (140-400) K/mcL Neutrophils # 8.6 (1.6-8.9) K/mcL BMP 09/30/17 15:58 Sodium 134 L Potassium 4.8 Chloride 98 Carbon Dioxide 31 H BUN 18 Creatinine 0.95 Glucose 352 H Calcium 8.7 Consult Discharge Plan - Plan Referrals: Tammy Bullock, ELEMENTARY EDUCATOR [Primary Care Provider] - 10/06/17 9:00 am
[2017-09-30] MEDS ORDERED: Insulin DETEMIR 100 UNIT/ML X5UNITS SQ SCH (21:00)
[2017-10-01] MEDS: clonazePAM 1 MG TABLET PO PRN ×3 (00:47→16:59)
[2017-10-01] MEDS: *HR* OxyCODONE Immed Rel 15 MG TABLET PO PRN ×3 (00:47→16:59)
[2017-10-01] MEDS: Ipratropium/Albuterol Neb 3 ML IH SCH ×6 (03:54→23:00)
[2017-10-01 04:09] LABS: Basophils % 0.1 %; Hematocrit 38.8 % (37.5-50.1); Hemoglobin 13.2 g/dL (12.9-16.9); Immature Granulocytes % 0.8 % (0-4); Lymphocytes # 1.5 K/mcL (0.6-4.6); Lymphocytes % 15.7 %; Mean Corpuscular Hemoglobin 30.8 pg (28.0-33.3); Mean Corpuscular Volume 90.4 fL (83.0-100.0); Mean Platelet Volume 11.1 fL (9.4-12.4); Monocytes # 0.7 K/mcL (0.0-1.3); Monocytes % 7.5 %; Platelet Count 169 K/mcL (140-400); Red Blood Count 4.29 M/mcL (4.19-5.50); Segmented Neutrophils % 75.9 %
[2017-10-01 04:35] LABS: Neutrophils # 7.4 K/mcL (1.6-8.9); Platelet Estimate Normal (Normal)
[2017-10-01 04:44] LABS: BUN/Creatinine Ratio 21 (6-26); Blood Urea Nitrogen 16 mg/dL (6-20); Calcium 8.5 mg/dL (8.6-10.3); Carbon Dioxide 30 mEq/L (23-29); Chloride 98 mEq/L (98-107); Glucose 375 mg/dL (70-105); Osmolality,Calculated 293 (280-300); Potassium 4.3 mEq/L (3.5-5.1); Sodium 133 mEq/L (136-145); eGFR For African Americans > 60 (> 60); eGFR For Non-African Americans > 60 (> 60)
[2017-10-01] MEDS: MethylPREDNISolone 40 MG/ML VIAL IVP SCH ×2 (05:35→18:10)
[2017-10-01] MEDS: *HR* Heparin 5,000 UNIT/ML VIAL SQ SCH ×2 (05:35→18:10)
[2017-10-01] MEDS: Insulin LISPRO 300 UNITS/3 ML VIAL SQ SCH ×8 (09:00→22:32)
[2017-10-01] MEDS: FLUoxetine 20 MG CAPSULE PO SCH ×2 (09:01→21:25)
[2017-10-01] MEDS: Levofloxacin 500 MG/100 ML 500 MG/100 ML BAG IVPB SCH (09:08)
[2017-10-01] MEDS ORDERED: Insulin DETEMIR 100 UNIT/ML X5UNITS SQ SCH ×2 (14:58→15:15)
[2017-10-01] MEDS ORDERED: Insulin LISPRO 300 UNITS/3 ML VIAL SQ SCH (14:58)
--- NOTE | 2017-10-01 15:18 | Internal Med Progress Note ---
Date of Encounter: 10/01/17 Time of Encounter: 15:15 - Assessment and plan (1) Acute respiratory failure Current Visit: Yes Status: Acute Assessment and plan: Patient continues to have hypoxia on room air with SPO2 80s. Most likely related to COPD exacerbation as well as influenza. Patient drop in SPO2 without oxygen at rest and on ambulation he becomes extremely short of breath he will require home oxygen upon discharge Patient at times will ambulate around the room without oxygen can be considered very short of breath. Advised patient to use oxygen at all times Qualifiers: Respiratory failure complication: hypoxia Qualified Code(s): J96.01 - Acute respiratory failure with hypoxia (2) Influenza A Current Visit: Yes Status: Acute Assessment and plan: Tamiflu day 5 will continue for the next 10 days We will continue with oxygen maintaining SPO2 greater than 90% Continue bronchodilators Tylenol for fever and myalgia (3) Acute exacerbation of chronic obstructive airways disease Current Visit: Yes Status: Acute Assessment and plan: No wheezing noted at this time however hypoxia continues- will continue with bronchodilators as well as oxygen patient continues to have SPO2 93% on 2 L normally he does not require oxygen supplementation-failed 6 minute walk test Continue with Solu-Medrol IV Continue Levaquin Duo nebs every 4 hours Chest x-ray does not show pneumonia (4) Tobacco abuse Current Visit: Yes Status: Chronic Assessment and plan: Encouraged patient to stop smoking offered nicotine patch but patient declined at this time. (5) Anxiety Current Visit: Yes Status: Chronic Assessment and plan: We will continue with home medications (6) DVT prophylaxis Current Visit: Yes Status: Chronic Assessment and plan: Heparin subcutaneous (7) Diabetes mellitus Current Visit: No Status: Chronic Assessment and plan: We hold metformin for now Accu-Cheks before meals at bedtime sliding scale insulin high-dose due to steroid use. Blood sugars have steadily climbed. Patient is on steroids however he has also been noncompliant with diet drinking regular soda and chocolate milk. Advised nursing staff to get patient's regular soda only diet or water. Educated the patient on the importance of glucose control. We will increase basal insulin 20 units as well as pre-meal insulin. Continue with high scale sliding scale Qualifiers: Diabetes mellitus type: type 2 Diabetes mellitus complication status: without complication Diabetes mellitus terminal makeup operator insulin use: without terminal makeup operator use Qualified Code(s): E11.9 - Type 2 diabetes mellitus without complications - Time Spent With Patient less than 15 minutes - Subjective Interval history: Patient continues to require supplemental oxygen he becomes hypoxic without oxygen. Patient frequently removes oxygen advised him to keep oxygen on. No wheezes noted at this time cough has improved no fevers or chills. Patient's blood sugar has steadily increased apparently patient has been noncompliant with diet drinking regular sodas and chocolate milk. Advised nursing staff to only give him diet or water. Informed the patient the importance of diabetic diet and blood sugar control. - Constitutional Vitals: Temp Pulse Resp BP Pulse Ox 98.0 F 95 18 131/80 92 10/01/17 12:07 10/01/17 12:07 10/01/17 12:07 10/01/17 12:07 10/01/17 12:07 General appearance: Present: cooperative, mild distress, A&O X 3, pleasant, answers questions appropriately - Head Head exam: Present: atraumatic, normocephalic - Eye Eye exam: Present: PERRL, conjuntiva pink, sclera anicteric Pupils: Present: PERRL - Neck Neck exam general surgery: Present: supple, trachea midline. Absent: lymphadenopathy - Cardiovascular Cardiovascular exam: Present: RRR, +S1, +S2. Absent: diastolic murmur, gallop, rubs, systolic murmur - GI/Abdominal GI/Abdominal exam: Present: normal bowel sounds, soft, no peritoneal signs. Absent: distended, tenderness - Extremities Exam Extremities exam: Present: warm, radial pulses palpable and symmetrical. Absent : calf tenderness, cyanotic, pedal edema - Neurological Exam Neurological exam: Present: CN II-XII intact, oriented X3, no focal deficits. Absent: pronater drift, facial droop, speech deficit - Skin Skin exam: Present: dry, intact Internal Medicine: Result - Labs CBC & Chem 7: 10/01/17 03:28 10/01/17 03:28 Labs: Short CBC 09/30/17 10/01/17 Range/Units 15:58 03:28 WBC 10.7 9.7 (4.3-11.1) K/mcL Hgb 13.8 13.2 (12.9-16.9) g/dL Hct 42.1 38.8 (37.5-50.1) % Plt Count 171 169 (140-400) K/mcL Neutrophils # 8.6 7.4 (1.6-8.9) K/mcL BMP 09/30/17 10/01/17 15:58 03:28 Sodium 134 L 133 L Potassium 4.8 4.3 Chloride 98 98 Carbon Dioxide 31 H 30 H BUN 18 16 Creatinine 0.95 0.76 Glucose 352 H 375 H Calcium 8.7 8.5 L - Impressions Impressions Chest X-Ray 09/30/17 15:51 IMPRESSION: Ill-defined opacity in the left base, possibly representing pneumonia. D/ / Moncho Azevedo MD / Moncho Azevedo MD Interpreting Provider: Moncho Azevedo MD Consult Discharge Plan - Plan Referrals: Tammy Bullock CNP [Primary Care Provider] - 10/06/17 9:00 am
[2017-10-01] MEDS: Insulin DETEMIR 100 UNIT/ML X5UNITS SQ SCH (22:31)
[2017-10-02] MEDS: clonazePAM 1 MG TABLET PO PRN ×3 (00:22→17:41)
[2017-10-02] MEDS: *HR* OxyCODONE Immed Rel 15 MG TABLET PO PRN ×3 (00:22→17:41)
[2017-10-02] MEDS: Ipratropium/Albuterol Neb 3 ML IH SCH ×6 (03:23→23:18)
[2017-10-02] MEDS: MethylPREDNISolone 40 MG/ML VIAL IVP SCH (05:20)
[2017-10-02] MEDS: *HR* Heparin 5,000 UNIT/ML VIAL SQ SCH ×2 (05:20→17:57)
[2017-10-02 07:49] LABS: Basophils % 0.2 %; Hematocrit 39.6 % (37.5-50.1); Hemoglobin 13.5 g/dL (12.9-16.9); Immature Granulocytes % 1.4 % (0-4); Lymphocytes # 1.3 K/mcL (0.6-4.6); Lymphocytes % 13.3 %; Mean Corpuscular HGB Conc 34.1 g/dL (31.6-35.5); Mean Corpuscular Hemoglobin 30.6 pg (28.0-33.3); Mean Corpuscular Volume 89.8 fL (83.0-100.0); Monocytes # 0.7 K/mcL (0.0-1.3); Monocytes % 7.3 %; Neutrophils # 7.4 K/mcL (1.6-8.9); Platelet Count 191 K/mcL (140-400); Red Blood Count 4.41 M/mcL (4.19-5.50); Red Cell Distribution Width 12.1 % (11.5-14.5); Segmented Neutrophils % 77.8 %
[2017-10-02 08:18] LABS: BUN/Creatinine Ratio 22 (6-26); Blood Urea Nitrogen 15 mg/dL (6-20); Calcium 8.3 mg/dL (8.6-10.3); Carbon Dioxide 29 mEq/L (23-29); Chloride 100 mEq/L (98-107); Glucose 331 mg/dL (70-105); Osmolality,Calculated 292 (280-300); Potassium 4.3 mEq/L (3.5-5.1); Sodium 134 mEq/L (136-145); eGFR For African Americans > 60 (> 60); eGFR For Non-African Americans > 60 (> 60)
[2017-10-02] MEDS: Insulin LISPRO 300 UNITS/3 ML VIAL SQ SCH ×7 (09:16→20:13)
[2017-10-02] MEDS: FLUoxetine 20 MG CAPSULE PO SCH ×2 (09:18→20:13)
[2017-10-02] MEDS: levoFLOXacin 500 MG TABLET PO SCH (09:18)
--- NOTE | 2017-10-02 15:29 | Internal Med Progress Note ---
Date of Encounter: 10/02/17 Time of Encounter: 15:26 - Assessment and plan (1) Acute respiratory failure Current Visit: Yes Status: Acute Assessment and plan: Patient continues to have hypoxia on room air with SPO2 80s. Most likely related to COPD exacerbation as well as influenza. Patient drop in SPO2 without oxygen at rest and on ambulation he becomes extremely short of breath he will require home oxygen upon discharge Patient more compliant with oxygen and is ambulating around the room with oxygen tolerating well Qualifiers: Respiratory failure complication: hypoxia Qualified Code(s): J96.01 - Acute respiratory failure with hypoxia (2) Influenza A Current Visit: Yes Status: Acute Assessment and plan: Tamiflu day 6 will continue for the next 10 days We will continue with oxygen maintaining SPO2 greater than 90% Continue bronchodilators Tylenol for fever and myalgia (3) Acute exacerbation of chronic obstructive airways disease Current Visit: Yes Status: Acute Assessment and plan: No wheezing noted at this time however hypoxia continues- will continue with bronchodilators as well as oxygen patient continues to have SPO2 93% on 2 L normally he does not require oxygen supplementation-failed 6 minute walk test Prednisone taper Continue Levaquin- CXR Ill-defined opacity in the left base, possibly representing pneumonia. Duo nebs every 4 hours (4) Tobacco abuse Current Visit: Yes Status: Chronic Assessment and plan: Encouraged patient to stop smoking offered nicotine patch but patient declined at this time. (5) Anxiety Current Visit: Yes Status: Chronic Assessment and plan: We will continue with home medications (6) DVT prophylaxis Current Visit: Yes Status: Chronic Assessment and plan: Heparin subcutaneous (7) Diabetes mellitus Current Visit: No Status: Chronic Assessment and plan: We hold metformin for now Accu-Cheks before meals at bedtime sliding scale insulin high-dose due to steroid use. Blood sugars have been upper 200s improving patient has been compliant with diet we will continue with present insulin regime as well as patient's steroids have been decreased-A1c 5.2 Qualifiers: Diabetes mellitus type: type 2 Diabetes mellitus complication status: without complication Diabetes mellitus fpc insulin use: without fpc use Qualified Code(s): E11.9 - Type 2 diabetes mellitus without complications - Subjective Interval history: Patient continues to require oxygen he is on 2 L sats are 9394% patient states he feels better no wheezing at this time. Blood sugars are also improving he has stopped drinking sodas and has been more compliant. We will continue with insulin for now - Constitutional Vitals: Temp Pulse Resp BP Pulse Ox 97.9 F 94 16 169/65 93 10/02/17 06:51 10/02/17 06:51 10/02/17 11:00 10/02/17 06:51 10/02/17 11:00 General appearance: Present: cooperative, mild distress, A&O X 3, pleasant, answers questions appropriately - Head Head exam: Present: atraumatic, normocephalic - Eye Eye exam: Present: PERRL, conjuntiva pink, sclera anicteric Pupils: Present: PERRL - Neck Neck exam general surgery: Present: supple, trachea midline. Absent: lymphadenopathy - Respiratory Respiratory exam: Present: CTAB. Absent: accessory muscle use, rales, rhonchi, wheezes - Cardiovascular Cardiovascular exam: Present: RRR, +S1, +S2. Absent: diastolic murmur, gallop, rubs, systolic murmur - GI/Abdominal GI/Abdominal exam: Present: normal bowel sounds, soft, no peritoneal signs. Absent: distended, tenderness - Extremities Exam Extremities exam: Present: warm, radial pulses palpable and symmetrical. Absent : calf tenderness, cyanotic, pedal edema - Neurological Exam Neurological exam: Present: CN II-XII intact, oriented X3, no focal deficits. Absent: pronater drift, facial droop, speech deficit - Skin Skin exam: Present: dry, intact Internal Medicine: Result - Labs CBC & Chem 7: 10/02/17 07:17 10/02/17 07:17 Labs: Short CBC 10/02/17 Range/Units 07:17 WBC 9.5 (4.3-11.1) K/mcL Hgb 13.5 (12.9-16.9) g/dL Hct 39.6 (37.5-50.1) % Plt Count 191 (140-400) K/mcL Neutrophils # 7.4 (1.6-8.9) K/mcL BMP 10/02/17 07:17 Sodium 134 L Potassium 4.3 Chloride 100 Carbon Dioxide 29 BUN 15 Creatinine 0.68 L Glucose 331 H Calcium 8.3 L Consult Discharge Plan - Plan Referrals: Tammy Bullock, STRAP MAKER [Primary Care Provider] - 10/06/17 9:00 am
[2017-10-02 16:55] LABS: Hemoglobin A1C 9.3 %
[2017-10-02] MEDS: Insulin DETEMIR 100 UNIT/ML X5UNITS SQ SCH (20:13)
[2017-10-03] MEDS: clonazePAM 1 MG TABLET PO PRN ×2 (02:12→10:24)
[2017-10-03] MEDS: *HR* OxyCODONE Immed Rel 15 MG TABLET PO PRN ×2 (02:13→10:24)
[2017-10-03] MEDS: Ipratropium/Albuterol Neb 3 ML IH SCH ×3 (03:47→11:23)
[2017-10-03 04:35] LABS: Basophils # 0.1 K/mcL (0.0-0.2); Basophils % 0.5 %; Eosinophils % 0.2 %; Hematocrit 39.2 % (37.5-50.1); Hemoglobin 13.6 g/dL (12.9-16.9); Immature Granulocytes % 2.8 % (0-4); Lymphocytes # 2.6 K/mcL (0.6-4.6); Lymphocytes % 25.8 %; Mean Corpuscular HGB Conc 34.7 g/dL (31.6-35.5); Mean Corpuscular Hemoglobin 30.8 pg (28.0-33.3); Mean Corpuscular Volume 88.9 fL (83.0-100.0); Mean Platelet Volume 10.7 fL (9.4-12.4); Monocytes % 9.6 %; Neutrophils # 6.2 K/mcL (1.6-8.9); Platelet Count 170 K/mcL (140-400); Red Blood Count 4.41 M/mcL (4.19-5.50); Red Cell Distribution Width 12.3 % (11.5-14.5); Segmented Neutrophils % 61.1 %
[2017-10-03 04:54] LABS: BUN/Creatinine Ratio 22 (6-26); Blood Urea Nitrogen 17 mg/dL (6-20); Calcium 8.1 mg/dL (8.6-10.3); Carbon Dioxide 31 mEq/L (23-29); Chloride 99 mEq/L (98-107); Glucose 248 mg/dL (70-105); Osmolality,Calculated 290 (280-300); Potassium 3.8 mEq/L (3.5-5.1); Sodium 135 mEq/L (136-145); eGFR For African Americans > 60 (> 60); eGFR For Non-African Americans > 60 (> 60)
[2017-10-03] MEDS: *HR* Heparin 5,000 UNIT/ML VIAL SQ SCH (05:03)
[2017-10-03] MEDS: Insulin LISPRO 300 UNITS/3 ML VIAL SQ SCH ×4 (08:19→12:58)
[2017-10-03] MEDS: levoFLOXacin 500 MG TABLET PO SCH (08:19)
[2017-10-03] MEDS: FLUoxetine 20 MG CAPSULE PO SCH (08:19)
[2017-10-03] MEDS ORDERED: predniSONE 20 MG TABLET PO SCH (09:00)
[2017-10-03 11:21] VITALS: BP 142/90
--- NOTE | 2017-10-03 13:24 | Discharge Summary ---
Date of Encounter: 10/03/17 Time of Encounter: 13:17 - Discharge Diagnosis (1) Acute respiratory failure Priority: Primary Status: Acute Comments: Patient presented with hypoxia which is most likely related to COPD exasperation as well as influenza. Continue to experience low SPO2 and would become dyspneic with oxygen. Normally does not wear oxygen at home. 6 minute walk test was completed and he did qualify for home oxygen. He will go home with oxygen as well as with home health Qualifiers: Respiratory failure complication: hypoxia Qualified Code(s): J96.01 - Acute respiratory failure with hypoxia (2) Influenza A Priority: Primary Status: Acute Comments: We will continue with Tamiflu for the next 5 days Continue with bronchodilators as well as oxygen Tylenol for fever and myalgia (3) Acute exacerbation of chronic obstructive airways disease Priority: Primary Status: Acute Comments: No wheezing noted at this time continues to have hypoxic at said it is without oxygen. Continue with home oxygen Continue with bronchodilators Prednisone taper 10 10 units with Levaquin He should is to follow up with primary care (4) Tobacco abuse Priority: Secondary Status: Chronic Comments: Encourage patient to stop smoking offer nicotine patch which patient declined (5) Anxiety Priority: Secondary Status: Chronic Comments: Continue with home medications (6) Diabetes mellitus Priority: Primary Status: Chronic Comments: Patient's initial A1c was 5.2 he has been receiving steroids and has had increased and his blood sugars most likely induced from steroid use. He was in the 400s for some time because he was noncompliant with diet and was drinking regular sodas as well as chocolate milk. He is placed on sliding scale insulin as well as basal insulin and his blood sugars have improved to around 200. He will receive diabetic education and be discharged with glucometer. He will also be discharged on Lantus 10 units daily. He will require home health nursing assistance. He will follow up with his PCP in a few days to monitor his progress Qualifiers: Diabetes mellitus type: type 2 Diabetes mellitus complication status: without complication Diabetes mellitus clock smith insulin use: without clock smith use Qualified Code(s): E11.9 - Type 2 diabetes mellitus without complications - Discharge Medications Prescriptions: Albuterol Sulfate [Albuterol Inhaler] 2 puff IH Q4HR PRN #1 hfa.aer.ad PRN Reason: Shortness Of Breath/Wheezing Ipratropium/Albuterol Neb [Duoneb] 3 ml IH Q4HR PRN #60 inhsol PRN Reason: Shortness Of Breath/Wheezing Insulin DETEMIR [Levemir Flextouch] 10 unit SQ HS #1 insuln.pen levoFLOXacin [Levaquin] 500 mg PO DAILY #7 tablet predniSONE [Prednisone] 10 mg PO DAILY #30 tab.ds.pk Home Medications: FLUoxetine HCl [Prozac] 40 mg PO BID 09/28/17 [History] Levothyroxine [Synthroid] 175 mcg PO DAILY 09/28/17 [History] OxyCODONE Immed Rel [Roxicodone 15 MG] 15 mg PO Q8HR PRN 09/28/17 [History] Quetiapine Fumarate [Seroquel] 400 mg PO DAILY 09/28/17 [History] clonazePAM [Klonopin] 1 mg PO TID PRN 09/28/17 [History] Albuterol Sulfate [Albuterol Inhaler] 2 puff IH Q4HR PRN #1 hfa.aer.ad 10/03/17 [Rx] Insulin DETEMIR [Levemir Flextouch] 10 unit SQ HS #1 insuln.pen 10/03/17 [Rx] Ipratropium/Albuterol Neb [Duoneb] 3 ml IH Q4HR PRN #60 inhsol 10/03/17 [Rx] levoFLOXacin [Levaquin] 500 mg PO DAILY #7 tablet 10/03/17 [Rx] predniSONE [Prednisone] 10 mg PO DAILY #30 tab.ds.pk 10/03/17 [Rx] Allergies/Adverse Reactions: 3 Allergy/AdvReac Type Severity Reaction Status Date / Time gabapentin Allergy Rash Verified 09/27/17 20:06 NSAIDS (Non-Steroidal Allergy Itching Verified 09/27/17 20:08 Anti-Inflamma amantadine [From Symmetrel] AdvReac Hallucinati Verified 09/27/17 20:09 ng Date of admission: 09/28/17 19:37 Primary care physician: Tammy Bullock CNP Consults: 10/03/17 11:58 Consult to Occupational Therapy [CONS] Stat Comment: Evaluate, develop and implement POC Reason for Consult: Need for home health Consult to Physical Therapy [CONS] Stat Comment: Evaluate, develop and implement POC Reason for Consult: Need for home health. Consult to Exercise Scientist [CONS] Routine Reason for SW Consult: Needs home health and oxygen Discharging clinician: Megan Mishra Anticipated date of discharge: 10/03/17 - Patient Status Disposition: Home Health Service Condition: Fair Functional capacity at discharge: independent ambulation Overall status at discharge: patient is progressing back to baseline - Discharge Instructions Instructions: Albuterol (By breathing), Prednisone (By mouth), Levofloxacin ( By mouth), Ipratropium/Albuterol (By breathing), Insulin Detemir (Injection), Acute Respiratory Distress Syndrome (DC), How to Stop Smoking (DC), How to Check Your Blood Sugar (DC), Hypothyroidism (DC), Diabetes Mellitus Type 2 in Adults (DC), Using Oxygen at Home (DC), Chronic Obstructive Pulmonary Disease ( DC), Meal Planning with Diabetes Exchanges (DC), Pen Devices for Insulin Administration (DC), Anxiety (DC) Follow Up With: Tammy Bullock CNP [Primary Care Provider] - 10/06/17 9:00 am - Diet and Activity Activity: wear oxygen at all times Diet: diabetic diet Hospital course: Mr. Baltazar is a 56 year old male past medical history of anxiety depression PTSD and COPD current smoker hypothyroidism. Patient presented to the ER approximately a week ago with 3 days prior history of flulike symptoms including cough and myalgia subjective fevers and chills, patient was swabbed and was positive for influenza a chest x-ray with no pneumonia, no leukocytosis. He was admitted and initiated on Tamiflu which she completed 10 doses. He was also placed on Levaquin as well as steroids IV. He required oxygen supplementation he continued to have D satting SPO2 and shortness of breath when not using oxygen he was found to be in the mid 80s. 6 minute walk test was completed and he was qualified for home O2. Respiratory status improves no wheezing his steroids were D escalated and he was placed on oral steroids. During the stay his blood sugars did elevate to her 400 most likely related to steroid use however he was also drinking sugary drinks like cola was and chocolate milk. His baseline A1c is around 5.2. He states he is not diabetic and has not been on insulin or metformin at home Patient was placed on sliding scale as well as Lantus. Once steroids descalated blood sugar slowly improved he was back to around [address] patient on low basal insulin at home. Patient will require home health due to oxygen supplementation as well as requiring insulin. He will be closely monitored by his PCP he does have a appointment with primary care in 3 days. He did receive diabetic education prior to discharge. He verbalized that he understands that he should always wear his oxygen. He was prescribed rescue inhalers as well as duonebs for home. Presently he is 93% on 3 L he is hemodynamically stable at this time. No wheezing or shortness of breath chest pain voiced. I reviewed medications as well as follow-up appointments with the patient who verbalized understanding. Time spent discussing smoking cessation with patient: 3 to 10 minutes - Time Spent with Patient Total time spent providing and/or coordinating discharge services: Less than 30 minutes - Constitutional Vitals: Temp Pulse Resp BP Pulse Ox 98.7 F 105 18 142/90 94 10/03/17 11:20 10/03/17 11:20 10/03/17 11:20 10/03/17 11:20 10/03/17 11:45 General appearance: Present: cooperative, mild distress, A&O X 3, pleasant, answers questions appropriately - Eye Eye exam: Present: PERRL, conjuntiva pink, sclera anicteric Pupils: Present: PERRL - Neck Neck exam general surgery: Present: supple, trachea midline. Absent: lymphadenopathy - Respiratory Respiratory exam: Present: CTAB. Absent: accessory muscle use, rales, rhonchi, wheezes - Cardiovascular Cardiovascular exam: Present: RRR, +S1, +S2. Absent: diastolic murmur, gallop, rubs, systolic murmur - GI/Abdominal GI/Abdominal exam: Present: normal bowel sounds, soft, no peritoneal signs. Absent: distended, tenderness - Extremities Exam Extremities exam: Present: warm, radial pulses palpable and symmetrical. Absent : calf tenderness, cyanotic, pedal edema - Neurological Exam Neurological exam: Present: CN II-XII intact, oriented X3, no focal deficits. Absent: pronater drift, facial droop, speech deficit - Skin Skin exam: Present: dry, intact
--- NOTE | 2017-10-03 15:01 | Physician Discharge Referral ---
<MishraMegan Simone - Last Filed: 10/03/17 15:03> Home Health/Hosp Referral Info Transfer to: Home Health Provider in Charge Post Discharge: PCP - Diagnosis (1) Acute respiratory failure Priority: Primary Status: Acute (2) Influenza A Priority: Primary Status: Acute (3) Acute exacerbation of chronic obstructive airways disease Priority: Primary Status: Acute (4) Tobacco abuse Priority: Primary Status: Chronic (5) Anxiety Priority: Secondary Status: Chronic (6) Diabetes mellitus Priority: Primary Status: Chronic - Respiratory Orders Oxygen / L per min (3 L NC) Smoking Cessation: Smoking cessation has been advised. For more information, call the [place] Tobacco Quit Line at 2-246-VTPG-NOW. - Diet/Nutrition Diet/Nutrition Orders: No Concentrated Sweets - Activity Activity Orders: Up ad nahed - Services Needed Following services are medically necessary services: Nursing - Transfer Medications Prescriptions: Albuterol Sulfate [Albuterol Inhaler] 2 puff IH Q4HR PRN #1 hfa.aer.ad PRN Reason: Shortness Of Breath/Wheezing Ipratropium/Albuterol Neb [Duoneb] 3 ml IH Q4HR PRN #60 inhsol PRN Reason: Shortness Of Breath/Wheezing Insulin DETEMIR [Levemir Flextouch] 10 unit SQ HS #1 insuln.pen levoFLOXacin [Levaquin] 500 mg PO DAILY #7 tablet predniSONE [Prednisone] 10 mg PO DAILY #30 tab.ds.pk Home Medications: FLUoxetine HCl [Prozac] 40 mg PO BID 09/28/17 [History] Levothyroxine [Synthroid] 175 mcg PO DAILY 09/28/17 [History] OxyCODONE Immed Rel [Roxicodone 15 MG] 15 mg PO Q8HR PRN 09/28/17 [History] Quetiapine Fumarate [Seroquel] 400 mg PO DAILY 09/28/17 [History] clonazePAM [Klonopin] 1 mg PO TID PRN 09/28/17 [History] Albuterol Sulfate [Albuterol Inhaler] 2 puff IH Q4HR PRN #1 hfa.aer.ad 10/03/17 [Rx] Insulin DETEMIR [Levemir Flextouch] 10 unit SQ HS #1 insuln.pen 10/03/17 [Rx] Ipratropium/Albuterol Neb [Duoneb] 3 ml IH Q4HR PRN #60 inhsol 10/03/17 [Rx] levoFLOXacin [Levaquin] 500 mg PO DAILY #7 tablet 10/03/17 [Rx] predniSONE [Prednisone] 10 mg PO DAILY #30 tab.ds.pk 10/03/17 [Rx] Allergies/Adverse Reactions: 3 Allergy/AdvReac Type Severity Reaction Status Date / Time gabapentin Allergy Rash Verified 09/27/17 20:06 NSAIDS (Non-Steroidal Allergy Itching Verified 09/27/17 20:08 Anti-Inflamma amantadine [From Symmetrel] AdvReac Hallucinati Verified 09/27/17 20:09 ng Certification: Further, I certify that my clinical findings support that this patient is homebound (i.e. absences from home require considerable and taxing effort and are for medical reasons or synagogue services or infrequently or short duration when for other reasons) because: Homebound Reason: Severity of cardiac or pulmonary status limits activity tolerance Attestation: My signature below is to certify that this patient is under my care and that I, or nurse practitioner, or a physician's household personal assistant working with me, has a face-to -face encounter with this patient. <Elissa Omer - Last Filed: 10/04/17 09:35> - Respiratory Orders Smoking Cessation: Smoking cessation has been advised. For more information, call the [place] Tobacco Quit Line at 9-703-XCMK-NOW. Certification: Further, I certify that my clinical findings support that this patient is homebound (i.e. absences from home require considerable and taxing effort and are for medical reasons or synagogue services or infrequently or short duration when for other reasons) because: Attestation: My signature below is to certify that this patient is under my care and that I, or nurse practitioner, or a physician's household personal assistant working with me, has a face-to -face encounter with this patient.
== END 2017-10-03 16:10 | disposition home health service (06) | DRG 190 ==
LOC: 3BNU 19:55 → EMEROO 19:55 → 3BNU 23:37
PROVIDERS: ADMIT Pediatrics; ATTEND Registered Nurse

== ENCOUNTER 2018-08-22 23:35 | Inpatient (IN) ==
[2018-08-23] MEDS ORDERED: 0.9 % Sodium Chloride 500 ML IVC ONE (00:11)
[2018-08-23] MEDS ORDERED: methylPREDNISolone 125 MG/2 ML VIAL IVP ONE (00:11)
[2018-08-23] MEDS ORDERED: Ipratropium/Albuterol Neb 3 ML IH ONE (00:11)
--- NOTE | 2018-08-23 00:20 | Emergency Department Note ---
Disposition Clinical Impression: Pneumonia Qualifiers: Pneumonia type: due to unspecified organism Laterality: right Lung location: lower lobe of lung Qualified Code(s): J18.1 - Lobar pneumonia, unspecified organism Disposition: Admitted As Inpatient Condition: Fair Fall HPI - General Chief Complaint: ED General Medical Stated Complaint: fall Time Seen by Provider: 08/22/18 23:40 Source: patient, EMS Mode of arrival: EMS Limitations: no limitations Nursing Notes Reviewed: Yes Vital Signs Reviewed: Yes - History of Present Illness HPI Narrative: Patient presents to the ED via EMS with the chief complaint of a fall. Patient reports that he was urinating and went to the sink to wash his hands and he started to feel very lightheaded and dizzy. He states that he did not lose consciousness, but that he did lose his balance and fell into the wall, hitting his head on the toilet on the way down and landing flat on his back on the floor. He states he remembers the event. He denies any headache, neck pain, changes in vision, chest pain, shortness breath, abdominal pain, nausea, vomiting, diarrhea, loss of bowel or bladder control, rash, pain or swelling in his legs. Does report he has a history of COPD and is supposed to be on home oxygen but he never uses it. Does have a productive cough but no change from baseline. Denies any fever. - Related Data Home Medications Medication Instructions Recorded Confirmed FLUoxetine HCl [Prozac] 40 mg PO BID 09/28/17 09/28/17 Levothyroxine [Synthroid] 175 mcg PO DAILY 09/28/17 09/28/17 OxyCODONE Immed Rel [Roxicodone 15 15 mg PO Q8HR PRN 09/28/17 09/28/17 MG] Quetiapine Fumarate [Seroquel] 400 mg PO DAILY 09/28/17 09/28/17 clonazePAM [Klonopin] 1 mg PO TID PRN 09/28/17 09/28/17 Previous Rx's Medication Instructions Recorded Albuterol Sulfate [Albuterol 2 puff IH Q4HR PRN #1 hfa.aer.ad 10/03/17 Inhaler] Insulin DETEMIR [Levemir Flextouch] 10 unit SQ HS #1 insuln.pen 10/03/17 Ipratropium/Albuterol Neb [Duoneb] 3 ml IH Q4HR PRN #60 inhsol 10/03/17 levoFLOXacin [Levaquin] 500 mg PO DAILY #7 tablet 10/03/17 predniSONE [Prednisone] 10 mg PO DAILY #30 tab.ds.pk 10/03/17 Azithromycin 250 mg PO DAILY #4 tablet 10/11/17 Allergies Allergy/AdvReac Type Severity Reaction Status Date / Time gabapentin Allergy Rash Verified 10/11/17 02:28 NSAIDS (Non-Steroidal Allergy Itching Verified 10/11/17 02:28 Anti-Inflamma amantadine [From Symmetrel] AdvReac Hallucinati Verified 10/11/17 02:28 ng Review of Systems: As reviewed in the HPI. All other systems reviewed are negative or normal. Fall PMH - Past Medical History Medical history: Reports: asthma, COPD, diabetes Surgical history: Reports: cholecystectomy Psychiatric history: Reports: anxiety, depression, PTSD - Social History Smoking Status: Current every day smoker Alcohol use: Reports: none Drug use: Reports: none Physical Exam CONSTITUTIONAL: [well appearing, alert and in mild acute resp distress] EYES: [EOMI, clear conjunctiva, PERRLA] HENT: [Normocephalic, atraumatic, moist mucus membranes, normal oropharynx] NECK: [normal inspection, full ROM, trachea midline, no obvious swelling, no midline tenderness] PULMONARY: [mild resp distress, wheezing throughout insp/exp audible, mild conversational dyspnea, no obvious rhonchi CARDIOVASCULAR: [tachycardic, regular rhythm, normal heart sounds, no murmurs, distal extremities are warm and well perfused] GASTROINSTESTINAL: [soft, non-tender, non-rigid, non-distended, no guarding, no rebound, normal bowel sounds] GENITOURINARY/RECTAL: [deferred] NEUROLOGIC: [Alert, oriented x3, normal speech, moves all extremities] EXTREMITIES: [Normal inspection, full ROM, no tenderness, no pedal edema, normal capillary refill] MUSCULOSKELETAL: [no gross deformities, atraumatic] SKIN: [No cyanosis, no diaphoresis, normal color, warm, no rash] PSYCHIATRIC: [normal mood and affect] - General Limitations: no limitations General appearance: alert Course Vital Signs Temperature 101.4 F H 08/22/18 23:38 Pulse Rate 133 08/22/18 23:38 Respiratory Rate 20 08/22/18 23:38 Blood Pressure 160/82 08/22/18 23:38 O2 Sat by Pulse Oximetry 94 08/22/18 23:38 Temperature 101.4 F H 08/22/18 23:38 Pulse Rate 117 08/23/18 02:18 Respiratory Rate 24 08/23/18 02:18 Blood Pressure 104/77 08/23/18 02:18 O2 Sat by Pulse Oximetry 95 08/23/18 02:18 Oxygen Delivery Oxygen Delivery Nasal Cannula Fall - Medical Records Medical records reviewed: Yes I reviewed the patient's medical records. - Lab Data Lab results reviewed: Yes I reviewed the patient's lab results. Result diagrams: 08/23/18 00:43 08/23/18 00:43 Lab Results 08/23/18 08/23/18 08/23/18 Range/Units 00:43 00:43 00:43 WBC 33.6 H* (4.3-11.1) K/mcL RBC 4.73 (4.19-5.50) M/mcL Hgb 14.4 (12.9-16.9) g/dL Hct 42.8 (37.5-50.1) % MCV 90.5 (83.0-100.0) fL MCH 30.4 (28.0-33.3) pg MCHC 33.6 (31.6-35.5) g/dL RDW 12.2 (11.5-14.5) % Plt Count 243 (140-400) K/mcL MPV 9.7 (9.4-12.4) fL Immature Gran % 1.1 (0-4) % Seg Neutrophils % 86.3 % Lymphocytes % 5.0 % Monocytes % 7.3 % Eosinophils % 0.0 % Basophils % 0.3 % Neutrophils # 29.0 H (1.6-8.9) K/mcL Lymphocytes # 1.7 (0.6-4.6) K/mcL Monocytes # 2.5 H (0.0-1.3) K/mcL Eosinophils # 0.0 (0.0-0.6) K/mcL Basophils # 0.1 (0.0-0.2) K/mcL Platelet Estimate Normal (Normal) Sodium 128 L (136-145) mEq/L Potassium 3.9 (3.5-5.1) mEq/L Chloride 93 L (98-107) mEq/L Carbon Dioxide 24 (23-29) mEq/L BUN 11 (6-20) mg/dL Creatinine 0.88 (0.70-1.30) mg/dL Est GFR ( Amer) > 60 (> 60) Est GFR (Non-Af Amer) > 60 (> 60) BUN/Creatinine Ratio 13 (6-26) Glucose 432 H (70-105) mg/dL Calculated Osmolality 284 (280-300) Lactic Acid 2.0 (0.5-2.2) mmol/L Calcium 8.8 (8.6-10.3) mg/dL - Radiology Data Radiology results reviewed: Yes I reviewed the patient's radiology results. - EKG Data EKG attestation: Yes I reviewed and interpreted this EKG. EKG results narrative: Sinus tach, rate 1:30, right axis deviation, no acute ischemic changes
[2018-08-23 00:56] LABS: Basophils % 0.3 %
[2018-08-23 00:57] LABS: Basophils # 0.1 K/mcL (0.0-0.2); Hematocrit 42.8 % (37.5-50.1); Hemoglobin 14.4 g/dL (12.9-16.9); Immature Granulocytes % 1.1 % (0-4); Lymphocytes # 1.7 K/mcL (0.6-4.6); Mean Corpuscular HGB Conc 33.6 g/dL (31.6-35.5); Mean Corpuscular Hemoglobin 30.4 pg (28.0-33.3); Mean Corpuscular Volume 90.5 fL (83.0-100.0); Mean Platelet Volume 9.7 fL (9.4-12.4); Monocytes # 2.5 K/mcL (0.0-1.3); Monocytes % 7.3 %; Platelet Count 243 K/mcL (140-400); Red Blood Count 4.73 M/mcL (4.19-5.50); Red Cell Distribution Width 12.2 % (11.5-14.5); Segmented Neutrophils % 86.3 %
[2018-08-23] MEDS ORDERED: 0.9 % Sodium Chloride 1,000 ML IVC ONE ×2 (01:05→03:59)
[2018-08-23 01:14] LABS: BUN/Creatinine Ratio 13 (6-26); Blood Urea Nitrogen 11 mg/dL (6-20); Calcium 8.8 mg/dL (8.6-10.3); Carbon Dioxide 24 mEq/L (23-29); Chloride 93 mEq/L (98-107); Glucose 432 mg/dL (70-105); Osmolality,Calculated 284 (280-300); Potassium 3.9 mEq/L (3.5-5.1); Sodium 128 mEq/L (136-145); eGFR For Non-African Americans > 60 (> 60)
[2018-08-23 01:22] LABS: Platelet Estimate Normal (Normal)
[2018-08-23] MEDS ORDERED: Ipratropium/Albuterol Neb 3 ML IH STA (01:33)
[2018-08-23] MEDS ORDERED: Piperacillin/Tazobactam 4.5 GM in 0.9 % Sodium Chloride Mini Bag 100 ML IVPB ONE (01:34)
--- NOTE | 2018-08-23 03:20 | Emergency Department Note ---
Disposition Clinical Impression: Pneumonia Qualifiers: Pneumonia type: due to unspecified organism Laterality: right Lung location: lower lobe of lung Qualified Code(s): J18.1 - Lobar pneumonia, unspecified organism Disposition: Admitted As Inpatient Condition: Fair General Adult HPI - General Chief complaint: ED General Medical Stated complaint: fall Time Seen by Provider: 08/22/18 23:40 Source: patient, EMS Mode of arrival: EMS Limitations: no limitations - History of Present Illness Pain Scale: 8 - Related Data Home Medications Medication Instructions Recorded Confirmed FLUoxetine HCl [Prozac] 40 mg PO BID 09/28/17 09/28/17 Levothyroxine [Synthroid] 175 mcg PO DAILY 09/28/17 09/28/17 OxyCODONE Immed Rel [Roxicodone 15 15 mg PO Q8HR PRN 09/28/17 09/28/17 MG] Quetiapine Fumarate [Seroquel] 400 mg PO DAILY 09/28/17 09/28/17 clonazePAM [Klonopin] 1 mg PO TID PRN 09/28/17 09/28/17 Previous Rx's Medication Instructions Recorded Albuterol Sulfate [Albuterol 2 puff IH Q4HR PRN #1 hfa.aer.ad 10/03/17 Inhaler] Insulin DETEMIR [Levemir Flextouch] 10 unit SQ HS #1 insuln.pen 10/03/17 Ipratropium/Albuterol Neb [Duoneb] 3 ml IH Q4HR PRN #60 inhsol 10/03/17 levoFLOXacin [Levaquin] 500 mg PO DAILY #7 tablet 10/03/17 predniSONE [Prednisone] 10 mg PO DAILY #30 tab.ds.pk 10/03/17 Azithromycin 250 mg PO DAILY #4 tablet 10/11/17 Allergies Allergy/AdvReac Type Severity Reaction Status Date / Time gabapentin Allergy Rash Verified 10/11/17 02:28 NSAIDS (Non-Steroidal Allergy Itching Verified 10/11/17 02:28 Anti-Inflamma amantadine [From Symmetrel] AdvReac Hallucinati Verified 10/11/17 02:28 ng Past Medical History - Past Medical History Medical history: Reports: asthma, COPD, diabetes Surgical history: Reports: cholecystectomy Psychiatric history: Reports: anxiety, depression, PTSD - Social History Smoking Status: Current every day smoker Smokeless Tobacco Status: No Alcohol use: Reports: none Drug use: Reports: none Physical Exam - General Limitations: no limitations General appearance: alert Course Vital Signs Temperature 101.4 F H 08/22/18 23:38 Pulse Rate 133 08/22/18 23:38 Respiratory Rate 20 08/22/18 23:38 Blood Pressure 160/82 08/22/18 23:38 O2 Sat by Pulse Oximetry 94 08/22/18 23:38 Temperature 101.4 F H 08/22/18 23:38 Pulse Rate 117 08/23/18 02:18 Respiratory Rate 24 08/23/18 02:18 Blood Pressure 104/77 08/23/18 02:18 O2 Sat by Pulse Oximetry 95 08/23/18 02:18 Oxygen Delivery Oxygen Delivery Nasal Cannula Medical Decision Making - Lab Data Result diagrams: 08/23/18 00:43 08/23/18 00:43 Lab Results 08/23/18 08/23/18 08/23/18 Range/Units 00:43 00:43 00:43 WBC 33.6 H* (4.3-11.1) K/mcL RBC 4.73 (4.19-5.50) M/mcL Hgb 14.4 (12.9-16.9) g/dL Hct 42.8 (37.5-50.1) % MCV 90.5 (83.0-100.0) fL MCH 30.4 (28.0-33.3) pg MCHC 33.6 (31.6-35.5) g/dL RDW 12.2 (11.5-14.5) % Plt Count 243 (140-400) K/mcL MPV 9.7 (9.4-12.4) fL Immature Gran % 1.1 (0-4) % Seg Neutrophils % 86.3 % Lymphocytes % 5.0 % Monocytes % 7.3 % Eosinophils % 0.0 % Basophils % 0.3 % Neutrophils # 29.0 H (1.6-8.9) K/mcL Lymphocytes # 1.7 (0.6-4.6) K/mcL Monocytes # 2.5 H (0.0-1.3) K/mcL Eosinophils # 0.0 (0.0-0.6) K/mcL Basophils # 0.1 (0.0-0.2) K/mcL Platelet Estimate Normal (Normal) Sodium 128 L (136-145) mEq/L Potassium 3.9 (3.5-5.1) mEq/L Chloride 93 L (98-107) mEq/L Carbon Dioxide 24 (23-29) mEq/L BUN 11 (6-20) mg/dL Creatinine 0.88 (0.70-1.30) mg/dL Est GFR ( Amer) > 60 (> 60) Est GFR (Non-Af Amer) > 60 (> 60) BUN/Creatinine Ratio 13 (6-26) Glucose 432 H (70-105) mg/dL Calculated Osmolality 284 (280-300) Lactic Acid 2.0 (0.5-2.2) mmol/L Calcium 8.8 (8.6-10.3) mg/dL Attestation Statement - Attestation Attestation: I examined this patient and my medical decision-making was reviewed with the Resident Physician. I agree with the documented findings, disposition and treatment plan as described except to the extent set forth below. Dizziness followed by syncopal episode, hit his head when he lost consciousness. Arrives febrile and tachycardic with normal blood pressure. Symptomatically orthostatic. Significant leukocytosis at 33,000. Short of breath and wheezing, nebulizers provided. Culture sent. Antibiotics started. Lactate normal, but is clinically dehydrated with dry mucous membranes and tachycardia so fluids were administered. Admitted.
[2018-08-23] MEDS ORDERED: Isovue-370 500 ML INFUS..BTL IV ONE (03:56)
[2018-08-23] MEDS ORDERED: D5% in Water 1,000 ML IVC PRN (03:59)
[2018-08-23] MEDS ORDERED: Dextrose Gel 15 GM/37.5 ML TUBE PO PRN ×2 (03:59)
[2018-08-23] MEDS ORDERED: *HR* Dextrose 50 % in Water (Syg) 50 ML SYRINGE IVP PRN (03:59)
--- NOTE | 2018-08-23 04:06 | Internal Med History&Physical ---
<Agnes Maharaj - Last Filed: 08/23/18 04:20> Date of Encounter: 08/23/18 Time of Encounter: 04:04 Internal Medicine - H&P: HPI Chief complaint: Leukocytosis Admitted From: Emergency Dept History of present illness: Mr. Baltazar is a 57 year old male with significant past medical history of COPD, hypothyroidism, hypertension admitted from the emergency department with concern for sepsis from unknown source. According to the patient today he had 2 syncopal episodes. He states one occurred this afternoon. He states that he h ad an episode where he felt weak and dizzy and passed out hitting his head on the sink in his back on the side of the tub. This occurred again later in the evening. Patient denies any other prodromal symptoms including chest pain, shortness of breath, headache, abdominal pain, nausea or vomiting. Patient was brought to the emergency department via EMS. When he initially was evaluated he had diffuse wheezing, was given DuoNeb's, steroids and basic laboratory analysis. Labs showed leukocytosis at 33 and chest x-ray with right lower lobe nodule. No focal consolidation was found. He was started on vancomycin and Zosyn due to his fever, tachycardia, leukocytosis and physical exam. Patient had a CT of the head completed with was within normal limits in the emergency department. When I evaluated the patient he was diaphoretic but hemodynamically stable. Remains mildly tachycardic. Denies any chest pain, shortness of breath or abdominal pain. Patient does have a significant smoking history including smoking 3 packs of cigarettes for greater than 10 years and a cumulative smoking history of 47 years. Patient does disclose feeling more depressed recently than normal due to the recent loss of his daughter but denies any suicidal or homicidal ideations. Past Med Surg Social Fam HX - Past Medical History Attestation: Yes The following information was validated with the patient. Medical history: asthma, COPD, diabetes Psychiatric history: anxiety, depression, PTSD - Past Surgical History Surgical History: cholecystectomy - Social History Smoking Status: Current every day smoker Smokeless Tobacco Status: No Alcohol use: none Drug use: none - Family History Grandmother Hx Family Cardiac Disorders: Yes Hx Family Endocrine Disorder: Yes (DM) Mother Living Status: Hx Family Respiratory Disorders: Yes (emphysema) Internal Medicine - H&P: Meds RX: FLUoxetine HCl [Prozac] 40 mg PO BID 09/28/17 [History] RX: Levothyroxine [Synthroid] 175 mcg PO DAILY 09/28/17 [History] RX: OxyCODONE Immed Rel [Roxicodone 15 MG] 15 mg PO Q8HR PRN 09/28/17 [History] RX: Quetiapine Fumarate [Seroquel] 400 mg PO DAILY 09/28/17 [History] RX: clonazePAM [Klonopin] 1 mg PO TID PRN 09/28/17 [History] Albuterol Sulfate [Albuterol Inhaler] 2 puff IH Q4HR PRN #1 hfa.aer.ad 10/03/17 [Rx] Insulin DETEMIR [Levemir Flextouch] 10 unit SQ HS #1 insuln.pen 10/03/17 [Rx] RX: Ipratropium/Albuterol Neb [Duoneb] 3 ml IH Q4HR PRN #60 inhsol 10/03/17 [Rx] RX: levoFLOXacin [Levaquin] 500 mg PO DAILY #7 tablet 10/03/17 [Rx] predniSONE [Prednisone] 10 mg PO DAILY #30 tab.ds.pk 10/03/17 [Rx] RX: Azithromycin 250 mg PO DAILY #4 tablet 10/11/17 [Rx] Allergy/AdvReac Type Severity Reaction Status Date / Time gabapentin Allergy Rash Verified 10/11/17 02:28 NSAIDS (Non-Steroidal Allergy Itching Verified 10/11/17 02:28 Anti-Inflamma amantadine [From Symmetrel] AdvReac Hallucinati Verified 10/11/17 02:28 ng All Systems PM: A 10-system review of systems was performed and is negative for pertinent findings except as documented above in the HPI. - Constitutional Constitutional: fever(s), falls - EENT Eyes: as per HPI Ears: as per HPI Nose, mouth and throat: as per HPI - Cardiovascular Cardiovascular ROS IM: dyspnea, syncope, no chest pain - Respiratory Respiratory: dyspnea, no cough, no stridor - Gastrointestinal Gastrointestinal: no abdominal pain, no nausea, no vomiting - Genitourinary Genitourinary ROS male: as per HPI - Musculoskeletal Musculoskeletal ROS IM: as per HPI - Integumentary Integumentary IM: as per HPI - Neurological Neurological ROS: disequilibrium, frequent falls, no abnormal speech, no headache(s) - Psychiatric Psychiatric: as per HPI - Endocrine Endocrine IM: as per HPI - Hematologic/Lymphatic Hematologic/Lymphatic: as per HPI - Allergic/Immunologic Allergic/Immunologic: as per HPI - Constitutional Vitals: Temp Pulse Resp BP Pulse Ox 97.9 F 115 18 128/73 93 08/23/18 03:31 08/23/18 03:31 08/23/18 03:31 08/23/18 03:31 08/23/18 03:31 Exam: Patient is diaphoretic and tachycardic in the room. He is alert and oriented 3. - Head Head exam: Present: atraumatic, normal inspection, normocephalic - Eye Eye exam: Present: EOMI, PERRL. Absent: scleral icterus - ENT ENT exam: Present: mucous membranes dry - Neck Neck exam general surgery: Present: full ROM - Respiratory Respiratory exam: Present: tachypnea. Absent: rales, respiratory distress, stridor - Cardiovascular Cardiovascular exam: Present: tachycardia. Absent: gallop, irregular rhythm - GI/Abdominal GI/Abdominal exam: Present: soft. Absent: rebound, rigid, tenderness - Extremities Exam Extremities exam: Present: full ROM, warm - Neurological Exam Neurological exam: Present: alert, oriented X3, no focal deficits - Psychiatric Psychiatric exam: Present: depressed - Skin Skin exam: Present: diaphoretic Internal Med - H&P Results - Labs CBC & Chem 7: 08/23/18 00:43 08/23/18 00:43 Labs: Short CBC 08/23/18 Range/Units 00:43 WBC 33.6 H* (4.3-11.1) K/mcL Hgb 14.4 (12.9-16.9) g/dL Hct 42.8 (37.5-50.1) % Plt Count 243 (140-400) K/mcL Neutrophils # 29.0 H (1.6-8.9) K/mcL BMP 08/23/18 00:43 Sodium 128 L Potassium 3.9 Chloride 93 L Carbon Dioxide 24 BUN 11 Creatinine 0.88 Glucose 432 H Calcium 8.8 - Impressions ITS Impressions Chest X-Ray 08/23/18 00:08 IMPRESSION: Faint ill-defined rounded opacity in the right lower lung measuring up to 5.7 cm. Recommend either PA and lateral chest radiographs or CT of the chest with contrast. D/ / Tai Sullivan / Tai Sullivan Interpreting Provider: Tai Sullivan Head CT 08/23/18 00:11 IMPRESSION: No acute intracranial abnormality. D/ / Lewis Singh MD / Lewis Singh MD Interpreting Provider: Lewis Singh MD - Assessment and plan (1) Syncope Current Visit: Yes Status: Acute Assessment and plan: Patient had episode of syncope and fall today. States he felt dizzy but no o ther prodromal symptoms. Patient's cerebellar exam is abnormal on exam. We will perform an MRI of the head and consult neurology as needed. Qualifiers: Syncope type: unspecified Qualified Code(s): R55 - Syncope and collapse (2) Leukocytosis Current Visit: Yes Status: Acute Assessment and plan: Patient has leukocytosis up to 33 on CBC completed in emergency department. Will repeat CBC after fluid resuscitation. Nodule also seen on chest x-ray therefore we will perform a CT of the chest, abdomen and pelvis to rule out any underlying malignancy or other abnormality that could be causing the leukocytosis. Qualifiers: Leukocytosis type: bandemia Qualified Code(s): D72.825 - Bandemia (3) Diabetes mellitus Current Visit: Yes Status: Chronic Assessment and plan: Patient on insulin at home. Will provide patient with medium dose sliding scale insulin Qualifiers: Diabetes mellitus type: type 2 Diabetes mellitus half-way insulin use: with local company intermodal truck driver use Diabetes mellitus complication status: with unspecified complications Qualified Code(s): E11.8 - Type 2 diabetes mellitus with unspecified complications; Z79.4 - assistant terminal manager (current) use of insulin (4) Tachycardia Current Visit: Yes Status: Acute Assessment and plan: Patient arrived to emergency department tachycardic. Remains tachycardic in the room. Patient did receive 2500cc of fluid resuscitation but still appears dry on exam. We will provide patient with another liter of fluid. (5) Fever Current Visit: Yes Status: Acute Assessment and plan: Patient afebrile in the emergency department. Concern for infectious etiology. We will continue to trend and provide patient with Tylenol as needed. Qualifiers: Fever type: unspecified Qualified Code(s): R50.9 - Fever, unspecified (6) Hypothyroidism Current Visit: Yes Status: Chronic Assessment and plan: Patient on levothyroxine at home. We will continue home medications. Will obtain TSH level. Qualifiers: Hypothyroidism type: unspecified Qualified Code(s): E03.9 - Hypothyroidism, unspecified (7) DVT prophylaxis Current Visit: Yes Status: Chronic Assessment and plan: Subcutaneous heparin - Time Spent With Patient Total time spent is greater than 50% in coordination of care (as documented) at patient's floor/unit and/or counseling patient: <Kristen Culp - Last Filed: 08/23/18 06:27> Date of Encounter: 08/23/18 Internal Medicine - H&P: HPI History of present illness: Mr. Baltazar is a 57 year old male All Systems PM: A 10-system review of systems was performed and is negative for pertinent findings except as documented above in the HPI. - Constitutional Vitals: Temp Pulse Resp BP Pulse Ox 97.9 F 115 18 128/73 93 08/23/18 03:31 08/23/18 03:31 08/23/18 03:31 08/23/18 03:31 08/23/18 03:31 Internal Med - H&P Results - Labs CBC & Chem 7: 08/23/18 00:43 08/23/18 00:43 Labs: Short CBC 08/23/18 Range/Units 00:43 WBC 33.6 H* (4.3-11.1) K/mcL Hgb 14.4 (12.9-16.9) g/dL Hct 42.8 (37.5-50.1) % Plt Count 243 (140-400) K/mcL Neutrophils # 29.0 H (1.6-8.9) K/mcL BMP 08/23/18 00:43 Sodium 128 L Potassium 3.9 Chloride 93 L Carbon Dioxide 24 BUN 11 Creatinine 0.88 Glucose 432 H Calcium 8.8 - Impressions ITS Impressions Chest X-Ray 08/23/18 00:08 IMPRESSION: Faint ill-defined rounded opacity in the right lower lung measuring up to 5.7 cm. Recommend either PA and lateral chest radiographs or CT of the chest with contrast. D/ / Tai Sullivan / Tai Sullivan Interpreting Provider: Tai Sullivan Head CT 08/23/18 00:11 IMPRESSION: No acute intracranial abnormality. D/ / Lewis Singh MD / Lewis Singh MD Interpreting Provider: Lewis Singh MD - Time Spent With Patient Total time spent is greater than 50% in coordination of care (as documented) at patient's floor/unit and/or counseling patient: - Attending Attestation I performed a history and physical exam of the patient and discussed his management with the resident. I reviewed the residents note and agree with the documented findings and plan of care.
[2018-08-23] MEDS ORDERED: *HR* HYDROcodone/Acet 5/325 mg TABLET PO PRN (04:08)
[2018-08-23] MEDS ORDERED: Naloxone 0.4 MG/ML INJ IVP PRN (04:08)
--- NOTE | 2018-08-23 04:47 | Event Note ---
Date of Encounter: 08/23/18 Time of Encounter: 04:45 I was called to patient bedside due to decreased mental status and nystagmus on exam. My attending Dr. Culp examined patient and patient was difficult to arouse with concern for nystagmus. When I arrived I sternal rubbed the patient. He was initially mildly confused but able to answer questions. Patient did not have nystagmus at that time. Due to patient's waxing and waning mental status decision was made to transfer the patient to for more frequent neurological examinations.
[2018-08-23] MEDS: Insulin LISPRO 300 UNITS/3 ML VIAL SQ SCH ×6 (05:35→21:02)
[2018-08-23] MEDS: *HR* Heparin 5,000 UNIT/ML VIAL SQ SCH ×2 (06:00→17:05)
[2018-08-23 06:03] LABS: Basophils % 0.3 %; Lymphocytes % 4.1 %; Mean Platelet Volume 10.2 fL (9.4-12.4); Red Cell Distribution Width 12.2 % (11.5-14.5)
[2018-08-23 06:05] LABS: Basophils # 0.1 K/mcL (0.0-0.2); Hematocrit 43.8 % (37.5-50.1); Hemoglobin 14.8 g/dL (12.9-16.9); Immature Granulocytes % 1.8 % (0-4); Lymphocytes # 1.4 K/mcL (0.6-4.6); Mean Corpuscular HGB Conc 33.8 g/dL (31.6-35.5); Mean Corpuscular Hemoglobin 30.8 pg (28.0-33.3); Mean Corpuscular Volume 91.1 fL (83.0-100.0); Monocytes # 1.4 K/mcL (0.0-1.3); Platelet Count 236 K/mcL (140-400); Red Blood Count 4.81 M/mcL (4.19-5.50); Segmented Neutrophils % 89.8 %
[2018-08-23 06:27] LABS: Thyroid Stimulating Hormone 0.078 mcIU/mL (0.340-5.600)
[2018-08-23 06:37] LABS: Neutrophils # 31.1 K/mcL (1.6-8.9)
[2018-08-23 06:39] LABS: Platelet Estimate Normal (Normal)
[2018-08-23] MEDS ORDERED: Insulin LISPRO 300 UNITS/3 ML VIAL SQ SCH ×2 (07:30→21:00)
[2018-08-23] MEDS: 0.9 % Sodium Chloride 1,000 ML IVC SCH (07:32)
[2018-08-23] MEDS: Albuterol 2.5 MG/3 ML NEBULIZER IH SCH ×2 (07:34→11:36)
[2018-08-23 08:31] LABS: Bilirubin,Urine Negative (Negative); Blood,Urine Trace (Negative); Clarity,Urine Clear (Clear); Color,Urine Yellow (Yellow); Glucose,Urine (UA) >=1000 mg/dL (Normal); Ketones,Urine 80 mg/dL (Negative); Leukocyte Esterase,Urine Negative (Negative); Nitrite,Urine Negative (Negative); PH,Urine 5.5 pH Units (5.0-8.0); Protein,Urine Negative (Neg-Trace); Specific Gravity,Urine > 1.030 (1.010-1.025); Urobilinogen,Urine Normal (Normal)
[2018-08-23 08:32] LABS: Bacteria,Urine None Seen per hpf (None-Few); Hyaline Casts,Urine None Seen per lpf (None-Few); RBC,Urine 0-3 per hpf (0-3); Squamous Epithelial Cell,Urine Few per lpf (None-Few); WBC,Urine 0-3 per hpf (0-3)
[2018-08-23 08:42] LABS: Estimated Average Glucose 269 mg/dl
[2018-08-23] MEDS: FLUoxetine 20 MG CAPSULE PO SCH ×2 (09:41→21:02)
[2018-08-23] MEDS ORDERED: Insulin DETEMIR 100 UNIT/ML X5UNITS SQ ONE (12:02)
--- NOTE | 2018-08-23 12:06 | Event Note ---
Date of Encounter: 08/23/18 Time of Encounter: 12:05 57-year-old male with medical history of tobacco abuse, diabetes mellitus, who is admitted and being managed for multiple episodes of syncope, acute hypoxic respiratory failure, sepsis and multifocal pneumonia. The patient is seen and examined at the bedside. he is lethargic but awake, able to give a history, reports recent cold with hacking cough. Denies any history of aspiration. He is currently not taking sputum. Physical examination Vital signs: Tachycardic, tachypneic, 88% saturation on 2 L of oxygen. Gen.: Morbidly obese, in mild respiratory distress. Awake and alert and oriented 3. Head: Atraumatic Eyes: Not pale Neck: Normal inspection Chest: Equal chest wall movement bilaterally Respiratory: Diminished air entry globally, right middle lobe and right lower lobe bronchi. No crackles. Heart: S1, S2, tachycardic, no murmurs gallops or rubs. Abdomen: Obese, nontender. Extremities: No pedal edema. Labs and imaging reviewed: Leukocytosis with left shift, chemistry with hyponatremia, otherwise unremarkable. A1c 11. Urine analysis with proteinuria, glucosuria, and mild ketonuria. Chest CT noted for right lower lobe and right middle lobe consolidation, emphysema, coronary artery disease. Abdomen CT with evidence of pneumonia in the right lower lobe, and diverticulosis. Otherwise unremarkable. Brain MRI is pending. Assessment and plan Sepsis: Patient met sepsis criteria with fever, tachycardia, tachypnea, leukocytosis and multifocal pneumonia being the source of sepsis. Received one dose of vancomycin and Zosyn in the ER. We will continue with Zosyn and azithromycin IV, check nasal MRSA screen, continue gentle hydration, lactate was normal on admission. Follow cultures. Multifocal pneumonia: Management as in sepsis above. Acute hypoxic respiratory failure: Continue oxygen by nasal cannula. History of syncope: Follow-up brain MRI, syncope is likely due to hypoxia. Hyponatremia: Na of 128 on arrival, s/p multiple IVF. Rpt Chem p.m, continue to monitor Emphysema: Suspect exacerbation at this time, continue duo nebs every 4 hours, resume home dose of low-dose prednisone. Antibiotics as in pneumonia. Tobacco abuse: The posterior replacement therapy. Diabetes: Uncontrolled, start patient on Levemir, continue sliding scale insulin, patient is tolerating by mouth. Morbid Obesity: Encourage weight loss
[2018-08-23] MEDS ORDERED: Piperacillin/Tazobactam 3.375 GM in 0.9 % Sodium Chloride Mini Bag 100 ML IVPB SCH (12:10)
[2018-08-23] MEDS ORDERED: Albuterol 2.5 MG/3 ML NEBULIZER IH PRN (12:26)
[2018-08-23] MEDS: Azithromycin 500 MG in D5% in Water 250 ML IVPB SCH (12:58)
[2018-08-23] MEDS: Piperacillin/Tazobactam 3.375 GM in 0.9 % Sodium Chloride Mini Bag 100 ML IVPB SCH ×2 (14:33→23:28)
[2018-08-23] MEDS: *HR* OxyCODONE Immed Rel 15 MG TABLET PO PRN (15:02)
[2018-08-23] MEDS: Ipratropium/Albuterol Neb 3 ML IH SCH ×3 (15:36→23:35)
--- NOTE | 2018-08-23 16:05 | Electrocardiograph Report ---
[address] [place], [place] [address] Test Date: 2018-08-23 Pat Name: Trino Baltazar Department: [id number] Room: 2N05 Gender: M Scalp Specialist: : 1960 Requested By: Lino Maharaj Order Number: [id number] Reading MD: Shae Rodríguez Measurements Intervals [place] Rate: 130 P: 85 MD: 149 QRS: 103 QRSD: 108 T: -8 QT: 332 QTc: 489 Interpretive Statements Sinus tachycardia Artifact Electronically Signed On 08-23-2018 16:04:00 EST by Shae Rodríguez
[2018-08-23] MEDS ORDERED: clonazePAM 1 MG TABLET PO ONE (21:00)
[2018-08-23] MEDS: Insulin DETEMIR 100 UNIT/ML X5UNITS SQ SCH (21:02)
[2018-08-24] MEDS: Ipratropium/Albuterol Neb 3 ML IH SCH ×5 (04:39→20:13)
[2018-08-24 04:51] LABS: Hematocrit 38.8 % (37.5-50.1); Mean Corpuscular HGB Conc 33.5 g/dL (31.6-35.5); Mean Corpuscular Hemoglobin 30.4 pg (28.0-33.3); Mean Corpuscular Volume 90.7 fL (83.0-100.0); Platelet Count 248 K/mcL (140-400); Red Blood Count 4.28 M/mcL (4.19-5.50); Red Cell Distribution Width 12.2 % (11.5-14.5)
[2018-08-24 05:06] LABS: BUN/Creatinine Ratio 25 (6-26); Blood Urea Nitrogen 17 mg/dL (6-20); Calcium 8.7 mg/dL (8.6-10.3); Carbon Dioxide 26 mEq/L (23-29); Chloride 98 mEq/L (98-107); Glucose 333 mg/dL (70-105); Osmolality,Calculated 287 (280-300); Potassium 4.1 mEq/L (3.5-5.1); Sodium 131 mEq/L (136-145); eGFR For Non-African Americans > 60 (> 60)
[2018-08-24 05:36] LABS: Lymphocytes # 0.6 K/mcL (0.6-4.6); Monocytes # 1.9 K/mcL (0.0-1.3); Neutrophils # 28.9 K/mcL (1.6-8.9)
[2018-08-24 05:37] LABS: Platelet Estimate Normal (Normal)
[2018-08-24] MEDS: *HR* Heparin 5,000 UNIT/ML VIAL SQ SCH ×2 (05:53→16:49)
[2018-08-24] MEDS: Piperacillin/Tazobactam 3.375 GM in 0.9 % Sodium Chloride Mini Bag 100 ML IVPB SCH ×3 (07:34→23:49)
[2018-08-24] MEDS: predniSONE 10 MG TABLET PO SCH (07:34)
[2018-08-24] MEDS: FLUoxetine 20 MG CAPSULE PO SCH ×2 (07:35→19:54)
[2018-08-24] MEDS: Insulin LISPRO 300 UNITS/3 ML VIAL SQ SCH ×4 (07:36→19:53)
[2018-08-24] MEDS ORDERED: clonazePAM 1 MG TABLET PO PRN (08:24)
[2018-08-24] MEDS: *HR* OxyCODONE Immed Rel 15 MG TABLET PO PRN (09:09)
--- NOTE | 2018-08-24 10:52 | Internal Med Progress Note ---
Hospitalist Progress Note - Encounter Date of Encounter: 08/24/18 Time of Encounter: 10:51 - Subjective Interval History: 57-year-old male with medical history of tobacco abuse, diabetes mellitus, who is admitted and being managed for multiple episodes of syncope, acute hypoxic respiratory failure, sepsis and multifocal pneumonia. The patient is seen and examined at the bedside. He denies new complaints. However, he is very sleepy and lethargic. According to pharmacy, oxycodone and clonazepam confirmed. We will reconsult his home medications. He is afebrile and leukocytosis is slowly improving. The patient denies a history of taking steroids for prolonged periods, he also reports having been on oxygen in the past which gave him with because he thought he did not need it. We will continue current management. - Exam Vitals: Temp Pulse Resp BP Pulse Ox 98.1 F 91 18 114/68 92 08/24/18 06:49 08/24/18 06:49 08/24/18 07:32 08/24/18 06:49 08/24/18 07:32 Exam: Vital signs: Vital signs stable Gen.: Morbidly obese, in mild respiratory distress. Awake and alert and oriented 3. Head: Atraumatic Eyes: Not pale Neck: Normal inspection Chest: Equal chest wall movement bilaterally Respiratory: Diminished air entry globally, right middle lobe and right lower lobe bronchi. No crackles. Heart: S1, S2, tachycardic, no murmurs gallops or rubs. Abdomen: Obese, nontender. Extremities: No pedal edema - Assessment and Plan (1) Sepsis Current Visit: Yes Status: Acute Assessment and Plan: Patient met sepsis criteria with fever, tachycardia, tachypnea, leukocytosis and multifocal pneumonia being the source of sepsis. Received one dose of vancomycin and Zosyn in the ER. We will continue with Zosyn and azithromycin IV- Day 2, nasal MRSA screen negative lactate was normal on admission. Follow cultures. (2) Pneumonia Current Visit: Yes Status: Acute Assessment and Plan: Management as in sepsis above. (3) Syncope Current Visit: Yes Status: Acute Assessment and Plan: Brain MRI unremarkable, carotid ultrasound unremarkable, echocardiogram noted wi th preserved EF and no wall motion abnormality. Syncopal likely due to hypoxia. (4) DVT prophylaxis Current Visit: Yes Status: Acute Assessment and Plan: Subcutaneous heparin. (5) Diabetes mellitus Current Visit: Yes Status: Chronic Assessment and Plan: Uncontrolled, continue Levemir, continue sliding scale insulin, patient is tolerating by mouth (6) Hypothyroidism Current Visit: Yes Status: Chronic Assessment and Plan: Continue home medications. (7) Acute exacerbation of chronic obstructive airways disease Current Visit: Yes Status: Acute Assessment and Plan: Continue duo nebs, antibiotics and steroids. (8) Acute respiratory failure Current Visit: Yes Status: Acute Assessment and Plan: Acute on chronic hypoxic respiratory failure. Continue oxygen. Will qualify for oxygen today. (9) PTSD (post-traumatic stress disorder) Current Visit: Yes Status: Chronic Assessment and Plan: Home medications reconciled, continue the same. (10) Tobacco abuse Current Visit: Yes Status: Chronic Assessment and Plan: Encouraged physician. Nicotine replacement therapy when necessary. - Time Spent with Patient Total time spent is greater than 50% in coordination of care (as documented) at patient's floor/unit and/or counseling patient: Plan of Care Discussed with: patient Internal Medicine: Result - Labs CBC & Chem 7: 08/24/18 04:12 08/24/18 04:12 Labs: Short CBC 08/24/18 Range/Units 04:12 WBC 31.4 H* (4.3-11.1) K/mcL Hgb 13.0 D (12.9-16.9) g/dL Hct 38.8 (37.5-50.1) % Plt Count 248 (140-400) K/mcL Neutrophils # 28.9 H (1.6-8.9) K/mcL BMP 08/24/18 04:12 Sodium 131 L Potassium 4.1 Chloride 98 Carbon Dioxide 26 BUN 17 Creatinine 0.68 L Glucose 333 H Calcium 8.7 - Impressions Impressions Brain MRI 08/23/18 03:56 IMPRESSION: 1. No acute intracranial abnormality. No acute infarct. 2. Mild global parenchymal volume loss. 3. Bilateral maxillary sinusitis. D/ / Min Puente MD / Min Puente MD Interpreting Provider: Min Puente MD Consult Discharge Plan - Plan Referrals: Tammy Bullock [facility]DER [Primary Care Provider] - 08/31/18 10:00 am (1) Sepsis Qualifiers: Sepsis type: sepsis due to unspecified organism Qualified Code(s): A41.9 - Sepsis, unspecified organism (2) Pneumonia Qualifiers: Pneumonia type: due to unspecified organism Laterality: right Lung location: lower lobe of lung Qualified Code(s): J18.1 - Lobar pneumonia, unspecified orga nism (3) Syncope Qualifiers: Syncope type: unspecified Qualified Code(s): R55 - Syncope and collapse (5) Diabetes mellitus Qualifiers: Diabetes mellitus type: type 2 Diabetes mellitus penitentiary insulin use: with termite treater use Diabetes mellitus complication status: with unspecified complications Qualified Code(s): E11.8 - Type 2 diabetes mellitus with unspecified complications; Z79.4 - termite treater (current) use of insulin (6) Hypothyroidism Qualifiers: Hypothyroidism type: unspecified Qualified Code(s): E03.9 - Hypothyroidism, unspecified (8) Acute respiratory failure Qualifiers: Respiratory failure complication: hypoxia Qualified Code(s): J96.01 - Acute respiratory failure with hypoxia
[2018-08-24] MEDS: Azithromycin 500 MG in D5% in Water 250 ML IVPB SCH (12:04)
[2018-08-24] MEDS: Insulin DETEMIR 100 UNIT/ML X5UNITS SQ SCH (19:54)
[2018-08-24] MEDS: ALPRAZolam 1 MG TABLET PO PRN (23:49)
[2018-08-25] MEDS: ALPRAZolam 1 MG TABLET PO PRN ×2 (04:00→20:50)
[2018-08-25] MEDS: Acetaminophen 325 MG TABLET PO PRN (04:00)
[2018-08-25] MEDS: Ipratropium/Albuterol Neb 3 ML IH SCH ×7 (04:18→23:09)
[2018-08-25] MEDS: Piperacillin/Tazobactam 3.375 GM in 0.9 % Sodium Chloride Mini Bag 100 ML IVPB SCH ×3 (06:15→23:23)
[2018-08-25] MEDS: *HR* Heparin 5,000 UNIT/ML VIAL SQ SCH ×2 (06:15→17:19)
[2018-08-25 06:36] LABS: Basophils % 0.1 %; Eosinophils % 0.2 %; Hematocrit 37.4 % (37.5-50.1); Hemoglobin 12.8 g/dL (12.9-16.9); Immature Granulocytes % 0.9 % (0-4); Lymphocytes # 2.4 K/mcL (0.6-4.6); Lymphocytes % 11.7 %; Mean Corpuscular HGB Conc 34.2 g/dL (31.6-35.5); Mean Corpuscular Hemoglobin 30.8 pg (28.0-33.3); Mean Corpuscular Volume 89.9 fL (83.0-100.0); Mean Platelet Volume 9.7 fL (9.4-12.4); Monocytes # 1.1 K/mcL (0.0-1.3); Monocytes % 5.5 %; Neutrophils # 16.5 K/mcL (1.6-8.9); Platelet Count 234 K/mcL (140-400); Red Blood Count 4.16 M/mcL (4.19-5.50); Red Cell Distribution Width 12.2 % (11.5-14.5); Segmented Neutrophils % 81.6 %
[2018-08-25 06:58] LABS: BUN/Creatinine Ratio 24 (6-26); Blood Urea Nitrogen 16 mg/dL (6-20); Calcium 8.5 mg/dL (8.6-10.3); Carbon Dioxide 31 mEq/L (23-29); Chloride 100 mEq/L (98-107); Glucose 321 mg/dL (70-105); Osmolality,Calculated 294 (280-300); Potassium 3.8 mEq/L (3.5-5.1); Sodium 135 mEq/L (136-145); eGFR For Non-African Americans > 60 (> 60)
[2018-08-25] MEDS: FLUoxetine 20 MG CAPSULE PO SCH (08:07)
[2018-08-25] MEDS: tiZANidine 4 MG TABLET PO PRN (08:16)
[2018-08-25] MEDS: Insulin LISPRO 300 UNITS/3 ML VIAL SQ SCH ×6 (09:04→20:23)
[2018-08-25] MEDS: predniSONE 10 MG TABLET PO SCH (09:05)
--- NOTE | 2018-08-25 09:32 | Internal Med Progress Note ---
Hospitalist Progress Note - Encounter Date of Encounter: 08/25/18 Time of Encounter: 09:30 - Subjective Interval History: 57-year-old male with medical history of tobacco abuse, diabetes mellitus, who is admitted and being managed for multiple episodes of syncope, acute hypoxic respiratory failure, sepsis and multifocal pneumonia. The patient is seen and examined at the bedside. He denies new complaints. He states he doesn't feel much improved from 08/24 He states he feels tired and lethargic, no fever, n/v/d, no chest pain or abdominal pain he has remained afebrile and leukocytosis is slowly improving Encouraged patient to ambulate We will qualify for O2 today in anticipation of discharge a.m if clinically improved - Exam Vitals: Temp Pulse Resp BP Pulse Ox 97.8 F 86 16 119/72 97 08/25/18 07:22 08/25/18 07:22 08/25/18 07:42 08/25/18 07:22 08/25/18 07:42 Exam: Vital signs: Vital signs stable Gen.: Morbidly obese, in mild respiratory distress. Awake and alert and oriented 3. Head: Atraumatic Eyes: Not pale Neck: Normal inspection Chest: Equal chest wall movement bilaterally Respiratory: Diminished air entry globally, No crackles. Heart: S1, S2, tachycardic, no murmurs gallops or rubs. Abdomen: Obese, non-tender. Extremities: No pedal edema - Assessment and Plan (1) Sepsis Current Visit: Yes Status: Acute Assessment and Plan: Improving Patient met sepsis criteria with fever, tachycardia, tachypnea, leukocytosis and multifocal pneumonia being the source of sepsis. Received one dose of vancomycin and Zosyn in the ER. Afebrile, leukicytosis improving , now 20K, from 36K on arrival We will continue with Zosyn and azithromycin IV- Day 3 nasal MRSA screen negative lactate was normal on admission. Follow cultures. (2) Pneumonia Current Visit: Yes Status: Acute Assessment and Plan: Management as in sepsis above. (3) Syncope Current Visit: Yes Status: Acute Assessment and Plan: Brain MRI unremarkable, carotid ultrasound unremarkable, echocardiogram noted with preserved EF and no wall motion abnormality. Syncopal episode was likely due to hypoxia. (4) DVT prophylaxis Current Visit: Yes Status: Acute Assessment and Plan: Subcutaneous heparin. (5) Diabetes mellitus Current Visit: Yes Status: Chronic Assessment and Plan: Uncontrolled, continue Levemir, add prandial insulin, continue sliding scale insulin, patient is tolerating by mouth (6) Hypothyroidism Current Visit: Yes Status: Chronic Assessment and Plan: Continue home medications. (7) Acute exacerbation of chronic obstructive airways disease Current Visit: Yes Status: Acute Assessment and Plan: Continue duo nebs, antibiotics and steroids. (8) Acute respiratory failure Current Visit: Yes Status: Acute Assessment and Plan: Acute on chronic hypoxic respiratory failure. Continue oxygen. Will qualify for oxygen today. (9) PTSD (post-traumatic stress disorder) Current Visit: Yes Status: Chronic Assessment and Plan: Home medications reconciled, continue the same. (10) Tobacco abuse Current Visit: Yes Status: Chronic Assessment and Plan: Encouraged cessation. Nicotine replacement therapy when necessary. - Time Spent with Patient Total time spent is greater than 50% in coordination of care (as documented) at patient's floor/unit and/or counseling patient: Plan of Care Discussed with: patient Internal Medicine: Result - Labs CBC & Chem 7: 08/25/18 06:16 08/25/18 06:16 Labs: Short CBC 08/25/18 Range/Units 06:16 WBC 20.2 H (4.3-11.1) K/mcL Hgb 12.8 L (12.9-16.9) g/dL Hct 37.4 L (37.5-50.1) % Plt Count 234 (140-400) K/mcL Neutrophils # 16.5 H (1.6-8.9) K/mcL BMP 08/25/18 06:16 Sodium 135 L Potassium 3.8 Chloride 100 Carbon Dioxide 31 H BUN 16 Creatinine 0.68 L Glucose 321 H Calcium 8.5 L - Impressions Impressions Chest CT 08/23/18 08:30 IMPRESSION: 1. Right lower lobe consolidation and right middle lobe consolidation. In the proper clinical setting, finding would be compatible with multi lobar pneumonia. Recommend follow-up chest radiograph 6-8 weeks post completion of treatment. If radiographic finding persists at that time, CT may be recommended. 2. Emphysema. 3. Coronary artery disease. 4. Borderline enlarged mediastinal nodes, likely reactive. D/ : / 08/23/2018 09:17:16 Salvador Moeller MD / chantal Interpreting Provider: Salvador Moeller MD Consult Discharge Plan - Plan Referrals: Tammy Bullock CNP [Primary Care Provider] - 08/31/18 10:00 am (1) Sepsis Qualifiers: Sepsis type: sepsis due to unspecified organism Qualified Code(s): A41.9 - Sepsis, unspecified organism (2) Pneumonia Qualifiers: Pneumonia type: due to unspecified organism Laterality: right Lung location: lower lobe of lung Qualified Code(s): J18.1 - Lobar pneumonia, unspecified organism (3) Syncope Qualifiers: Syncope type: unspecified Qualified Code(s): R55 - Syncope and collapse (5) Diabetes mellitus Qualifiers: Diabetes mellitus type: type 2 Diabetes mellitus fdc insulin use: with fdc use Diabetes mellitus complication status: with unspecified complications Qualified Code(s): E11.8 - Type 2 diabetes mellitus with unspecified complications; Z79.4 - termite treater helper (current) use of insulin (6) Hypothyroidism Qualifiers: Hypothyroidism type: unspecified Qualified Code(s): E03.9 - Hypothyroidism, unspecified (8) Acute respiratory failure Qualifiers: Respiratory failure complication: hypoxia Qualified Code(s): J96.01 - Acute r espiratory failure with hypoxia
[2018-08-25] MEDS: Venlafaxine XR (24 HR) 75 MG CAP.ER.24H PO SCH (09:37)
[2018-08-25] MEDS: Azithromycin 500 MG in D5% in Water 250 ML IVPB SCH (12:38)
[2018-08-25] MEDS: Insulin DETEMIR 100 UNIT/ML X5UNITS SQ SCH (20:50)
[2018-08-26] MEDS: ALPRAZolam 1 MG TABLET PO PRN ×3 (03:21→20:19)
[2018-08-26] MEDS: Ipratropium/Albuterol Neb 3 ML IH SCH ×6 (03:29→23:45)
[2018-08-26 05:37] LABS: Basophils # 0.1 K/mcL (0.0-0.2); Basophils % 0.3 %; Eosinophils # 0.1 K/mcL (0.0-0.6); Eosinophils % 0.6 %; Hematocrit 39.1 % (37.5-50.1); Hemoglobin 13.3 g/dL (12.9-16.9); Immature Granulocytes % 1.1 % (0-4); Lymphocytes # 2.9 K/mcL (0.6-4.6); Mean Corpuscular Hemoglobin 30.4 pg (28.0-33.3); Mean Corpuscular Volume 89.3 fL (83.0-100.0); Mean Platelet Volume 9.3 fL (9.4-12.4); Monocytes # 1.5 K/mcL (0.0-1.3); Monocytes % 8.3 %; Neutrophils # 13.1 K/mcL (1.6-8.9); Platelet Count 235 K/mcL (140-400); Red Blood Count 4.38 M/mcL (4.19-5.50); Red Cell Distribution Width 12.1 % (11.5-14.5); Segmented Neutrophils % 73.7 %
[2018-08-26 05:50] LABS: BUN/Creatinine Ratio 23 (6-26); Blood Urea Nitrogen 14 mg/dL (6-20); Calcium 8.2 mg/dL (8.6-10.3); Carbon Dioxide 30 mEq/L (23-29); Chloride 101 mEq/L (98-107); Glucose 157 mg/dL (70-105); Osmolality,Calculated 284 (280-300); Potassium 3.3 mEq/L (3.5-5.1); Sodium 135 mEq/L (136-145); eGFR For Non-African Americans > 60 (> 60)
[2018-08-26] MEDS: *HR* Heparin 5,000 UNIT/ML VIAL SQ SCH ×2 (06:05→18:01)
[2018-08-26] MEDS: Piperacillin/Tazobactam 3.375 GM in 0.9 % Sodium Chloride Mini Bag 100 ML IVPB SCH ×3 (07:42→22:24)
[2018-08-26] MEDS: predniSONE 10 MG TABLET PO SCH (07:48)
[2018-08-26] MEDS: Venlafaxine XR (24 HR) 75 MG CAP.ER.24H PO SCH (07:48)
[2018-08-26] MEDS: Insulin LISPRO 300 UNITS/3 ML VIAL SQ SCH ×7 (08:03→20:20)
[2018-08-26] MEDS: Acetaminophen 325 MG TABLET PO PRN ×2 (08:30→20:18)
--- NOTE | 2018-08-26 13:10 | Internal Med Progress Note ---
Hospitalist Progress Note - Encounter Date of Encounter: 08/26/18 Time of Encounter: 13:08 - Subjective Interval History: Pt denies chest pain. He states SOB persists. Advised to keep oxygen on at all times. States he is down from 3 PPD of ciggs tjo 11/2 pack a day and he is trying to quit. He reports chills but denies fever. - Exam Vitals: Temp Pulse Resp BP Pulse Ox 98.1 F 95 18 132/84 95 08/26/18 11:49 08/26/18 11:49 08/26/18 11:58 08/26/18 11:49 08/26/18 11:58 Exam: Vital signs: Vital signs stable Gen.: Morbidly obese, in mild respiratory distress. Awake and alert and oriented 3. Head: Atraumatic Eyes: Not pale Neck: Normal inspection Chest: Equal chest wall movement bilaterally Respiratory: Diminished air entry globally, No crackles. Heart: S1, S2, tachycardic, no murmurs gallops or rubs. Abdomen: Obese, non-tender. Extremities: No pedal edema - Assessment and Plan (1) Sepsis Current Visit: Yes Status: Acute Assessment and Plan: Improving Patient met sepsis criteria with fever, tachycardia, tachypnea, leukocytosis and multifocal pneumonia being the source of sepsis. Received one dose of vancomycin and Zosyn in the ER. Afebrile, leukocytosis improving , now 20K, from 36K on arrival We will continue with Zosyn and azithromycin IV- Day 3 nasal MRSA screen negative lactate was normal on admission. Follow cultures. (2) Acute respiratory failure Current Visit: Yes Status: Acute Assessment and Plan: Acute on chronic hypoxic respiratory failure. Continue oxygen. Pt qualified for home oxygen. (3) Acute exacerbation of chronic obstructive airways disease Current Visit: Yes Status: Acute Assessment and Plan: Continue duo nebs, antibiotics and steroids. Explained to pt that he needs a few more days on IV antibiotic and that he will be discharged on home oxygen. (4) Pneumonia Current Visit: Yes Status: Acute Assessment and Plan: Management as in sepsis above. (5) PTSD (post-traumatic stress disorder) Current Visit: Yes Status: Chronic Assessment and Plan: Home medications reconciled, continue the same. (6) Hypothyroidism Current Visit: Yes Status: Chronic Assessment and Plan: Continue home medications. (7) Tobacco abuse Current Visit: Yes Status: Chronic Assessment and Plan: Encouraged cessation. Nicotine replacement therapy when necessary. (8) Diabetes mellitus Current Visit: Yes Status: Chronic Assessment and Plan: Uncontrolled, continue Levemir, add prandial insulin, continue sliding scale insulin, patient is tolerating by mouth (9) Syncope Current Visit: Yes Status: Acute Assessment and Plan: Brain MRI unremarkable, carotid ultrasound unremarkable, echocardiogram noted with preserved EF and no wall motion abnormality. Syncopal episode was likely due to hypoxia. DVT Prophylaxis: Subcutaneous heparin - Summary of Assessment and Plan Summary of Assessment and Plan: History of present illness: Dr. Dallas Mr. Baltazar is a 57 year old male with significant past medical history of COPD, hypothyroidism, hypertension admitted from the emergency department with concern for sepsis from unknown source. According to the patient today he had 2 syncopal episodes. He states one occurred this afternoon. He states that he had an episode where he felt weak and dizzy and passed out hitting his head on the sink in his back on the side of the tub. This occurred again later in the evening. Patient denies any other prodromal symptoms including chest pain, shor tness of breath, headache, abdominal pain, nausea or vomiting. Patient was brought to the emergency department via EMS. When he initially was evaluated he had diffuse wheezing, was given DuoNeb's, steroids and basic laboratory analysis. Labs showed leukocytosis at 33 and chest x-ray with right lower lobe nodule. No focal consolidation was found. He was started on vancomycin and Zosyn due to his fever, tachycardia, leukocytosis and physical exam. Patient had a CT of the head completed with was within normal limits in the emergency department. When I evaluated the patient he was diaphoretic but hemodynamically stable. Remains mildly tachycardic. Denies any chest pain, shortness of breath or abdominal pain. Patient does have a significant smoking history including smoking 3 packs of cigarettes for greater than 10 years and a cumulative smoking history of 47 years. Patient does disclose feeling more depressed recently than normal due to the recent loss of his daughter but denies any suicidal or homicidal ideations. - Time Spent with Patient Total time spent is greater than 50% in coordination of care (as documented) at patient's floor/unit and/or counseling patient: less than 15 minutes Plan of Care Discussed with: patient Internal Medicine: Result - Labs CBC & Chem 7: 08/26/18 05:11 08/26/18 05:11 Labs: Short CBC 08/26/18 Range/Units 05:11 WBC 17.8 H (4.3-11.1) K/mcL Hgb 13.3 (12.9-16.9) g/dL Hct 39.1 (37.5-50.1) % Plt Count 235 (140-400) K/mcL Neutrophils # 13.1 H (1.6-8.9) K/mcL BMP 08/26/18 05:11 Sodium 135 L Potassium 3.3 L Chloride 101 Carbon Dioxide 30 H BUN 14 Creatinine 0.61 L Glucose 157 H Calcium 8.2 L Consult Discharge Plan - Plan Referrals: Tammy Bullock OVEN BAKER [Primary Care Provider] - 08/31/18 10:00 am (1) Sepsis Qualifiers: Sepsis type: sepsis due to unspecified organism Qualified Code(s): A41.9 - Sepsis, unspecified organism (2) Acute respiratory failure Qualifiers: Respiratory failure complication: hypoxia Qualified Code(s): J96.01 - Acute respiratory failure with hypoxia (4) Pneumonia Qualifiers: Pneumonia type: due to unspecified organism Laterality: right Lung location: lower lobe of lung Qualified Code(s): J18.1 - Lobar pneumonia, unspecified organism (6) Hypothyroidism Qualifiers: Hypothyroidism type: unspecified Qualified Code(s): E03.9 - Hypothyroidism, unspecified (8) Diabetes mellitus Qualifiers: Diabetes mellitus type: type 2 Diabetes mellitus watermelon inspector insulin use: with watermelon inspector use Diabetes mellitus complication status: with unspecified complications Qualified Code(s): E11.8 - Type 2 diabetes mellitus with unspecified complications; Z79.4 - nursing home (current) use of insulin (9) Syncope Qualifiers: Syncope type: unspecified Qualified Code(s): R55 - Syncope and collapse
[2018-08-26] MEDS: Azithromycin 500 MG in D5% in Water 250 ML IVPB SCH (15:39)
[2018-08-26] MEDS: Insulin DETEMIR 100 UNIT/ML X5UNITS SQ SCH (20:32)
[2018-08-26] MEDS: tiZANidine 4 MG TABLET PO PRN (20:32)
[2018-08-27] MEDS: Acetaminophen 325 MG TABLET PO PRN ×2 (03:26→22:08)
[2018-08-27] MEDS: Ipratropium/Albuterol Neb 3 ML IH SCH ×6 (04:10→23:11)
[2018-08-27] MEDS: Piperacillin/Tazobactam 3.375 GM in 0.9 % Sodium Chloride Mini Bag 100 ML IVPB SCH ×3 (06:47→23:36)
[2018-08-27] MEDS: *HR* Heparin 5,000 UNIT/ML VIAL SQ SCH ×2 (06:48→17:51)
[2018-08-27] MEDS: Insulin LISPRO 300 UNITS/3 ML VIAL SQ SCH ×7 (08:26→20:02)
[2018-08-27] MEDS: Venlafaxine XR (24 HR) 75 MG CAP.ER.24H PO SCH (08:29)
[2018-08-27] MEDS: predniSONE 10 MG TABLET PO SCH (08:29)
[2018-08-27 10:48] LABS: Basophils # 0.2 K/mcL (0.0-0.2); Basophils % 0.7 %; Eosinophils # 0.3 K/mcL (0.0-0.6); Eosinophils % 1.1 %; Hematocrit 45.7 % (37.5-50.1); Lymphocytes # 2.5 K/mcL (0.6-4.6); Lymphocytes % 9.7 %; Mean Corpuscular HGB Conc 33.5 g/dL (31.6-35.5); Mean Corpuscular Hemoglobin 30.7 pg (28.0-33.3); Mean Corpuscular Volume 91.8 fL (83.0-100.0); Mean Platelet Volume 9.4 fL (9.4-12.4); Monocytes # 1.7 K/mcL (0.0-1.3); Monocytes % 6.4 %; Neutrophils # 20.7 K/mcL (1.6-8.9); Platelet Count 305 K/mcL (140-400); Red Blood Count 4.98 M/mcL (4.19-5.50); Red Cell Distribution Width 12.4 % (11.5-14.5); Segmented Neutrophils % 79.1 %
[2018-08-27 10:49] LABS: Hemoglobin 15.3 g/dL (12.9-16.9)
[2018-08-27 10:56] LABS: Platelet Estimate Normal (Normal)
[2018-08-27 11:06] LABS: BUN/Creatinine Ratio 12 (6-26); Blood Urea Nitrogen 10 mg/dL (6-20); Calcium 8.7 mg/dL (8.6-10.3); Carbon Dioxide 25 mEq/L (23-29); Chloride 100 mEq/L (98-107); Glucose 243 mg/dL (70-105); Osmolality,Calculated 287 (280-300); Potassium 3.7 mEq/L (3.5-5.1); Sodium 135 mEq/L (136-145); eGFR For Non-African Americans > 60 (> 60)
[2018-08-27] MEDS: ALPRAZolam 1 MG TABLET PO PRN ×3 (12:23→23:34)
[2018-08-27] MEDS ORDERED: Azithromycin 500 MG in D5% in Water 250 ML IVPB ONE (16:00)
[2018-08-27] MEDS: Azithromycin 500 MG in D5% in Water 250 ML IVPB SCH (16:19)
--- NOTE | 2018-08-27 18:29 | Internal Med Progress Note ---
Hospitalist Progress Note - Encounter Date of Encounter: 08/27/18 Time of Encounter: 18:29 - Subjective Interval History: Pt denies chest pain. He states SOB improved with [place] oxygen. Advised to keep oxygen on at all times. States he is down from 3 PPD of cigarettes to 11/2 pack a day and he is trying to quit. He reports chills but denies fever. - Exam Vitals: Temp Pulse Resp BP Pulse Ox 98.1 F 98 18 141/86 92 08/27/18 16:51 08/27/18 16:51 08/27/18 16:51 08/27/18 16:51 08/27/18 16:51 Exam: Vital signs: Vital signs stable Gen.: Morbidly obese, in mild respiratory distress. Awake and alert and oriented 3. Head: Atraumatic Eyes: Not pale Neck: Normal inspection Chest: Equal chest wall movement bilaterally Respiratory: Diminished air entry globally, No crackles. Heart: S1, S2, tachycardic, no murmurs gallops or rubs. Abdomen: Obese, non-tender. Extremities: No pedal edema - Assessment and Plan (1) Sepsis Current Visit: Yes Status: Acute Assessment and Plan: Improving Patient met sepsis criteria with fever, tachycardia, tachypnea, leukocytosis and multifocal pneumonia being the source of sepsis. Received one dose of vancomycin and Zosyn in the ER. Afebrile, leukocytosis improving , now 20K, from 36K on arrival We will continue with Zosyn and azithromycin IV- Day 4 nasal MRSA screen negative lactate was normal on admission. Follow cultures. Will check chest x ray due to bump in WBC. WBC up from 17.8 to 26.1. (2) Acute respiratory failure Current Visit: Yes Status: Acute Assessment and Plan: Acute on chronic hypoxic respiratory failure. Continue oxygen. Pt qualified for home oxygen. (3) Acute exacerbation of chronic obstructive airways disease Current Visit: Yes Status: Acute Assessment and Plan: Continue duo nebs, antibiotics and steroids. Explained to pt that he needs a few more days on IV antibiotic and that he will be discharged on home oxygen. (4) Pneumonia Current Visit: Yes Status: Acute Assessment and Plan: Management as in sepsis above. Will check chest x ray in am due to bump in WBC. (5) PTSD (post-traumatic stress disorder) Current Visit: Yes Status: Chronic Assessment and Plan: Home medications reconciled, continue the same. (6) Hypothyroidism Current Visit: Yes Status: Chronic Assessment and Plan: Continue home medications. (7) Tobacco abuse Current Visit: Yes Status: Chronic Assessment and Plan: Encouraged cessation. Nicotine replacement therapy when necessary. (8) Diabetes mellitus Current Visit: Yes Status: Chronic Assessment and Plan: Uncontrolled, continue Levemir, add prandial insulin, continue sliding scale insulin, patient is tolerating by mouth (9) Syncope Current Visit: Yes Status: Acute Assessment and Plan: Brain MRI unremarkable, carotid ultrasound unremarkable, echocardiogram noted with preserved EF and no wall motion abnormality. Syncopal episode was likely due to hypoxia. DVT Prophylaxis: Subcutaneous heparin - Summary of Assessment and Plan Summary of Assessment and Plan: History of present illness: Dr. [place] Mr. Baltazar is a 57 year old male with significant past medical history of COPD, hypothyroidism, hypertension admitted from the emergency department with concern for sepsis from unknown source. According to the patient today he had 2 syncopal episodes. He states one occurred this afternoon. He states that he had an episode where he felt weak and dizzy and passed out hitting his head on the sink in his back on the side of the tub. This occurred again later in the evening. Patient denies any other prodromal symptoms including chest pain, shortness of breath, headache, abdominal pain, nausea or vomiting. Patient was brought to the emergency department via EMS. When he initially was evaluated he had diffuse wheezing, was given DuoNeb's, steroids and basic laboratory analysis. Labs showed leukocytosis at 33 and chest x-ray with right lower lobe nodule. No focal consolidation was found. He was started on vancomycin and Zosyn due to his fever, tachycardia, leukocytosis and physical exam. Patient had a CT of the head completed with was within normal limits in the emergency department. When I evaluated the patient he was diaphoretic but hemodynamically stable. Remains mildly tachycardic. Denies any chest pain, shortness of breath or abdominal pain. Patient does have a significant smoking history including smoking 3 packs of cigarettes for greater than 10 years and a cumulative smoking history of 47 years. Patient does disclose feeling more depressed recently than normal due to the recent loss of his daughter but denies any suicidal or homicidal ideations. - Time Spent with Patient Total time spent is greater than 50% in coordination of care (as documented) at patient's floor/unit and/or counseling patient: less than 15 minutes Plan of Care Discussed with: patient Internal Medicine: Result - Labs CBC & Chem 7: 08/27/18 10:38 08/27/18 10:38 Labs: Short CBC 08/27/18 Range/Units 10:38 WBC 26.1 H (4.3-11.1) K/mcL Hgb 15.3 D (12.9-16.9) g/dL Hct 45.7 (37.5-50.1) % Plt Count 305 (140-400) K/mcL Neutrophils # 20.7 H (1.6-8.9) K/mcL BMP 08/27/18 10:38 Sodium 135 L Potassium 3.7 Chloride 100 Carbon Dioxide 25 BUN 10 Creatinine 0.82 Glucose 243 H Calcium 8.7 Consult Discharge Plan - Plan Referrals: Tammy Bullock CNP [Primary Care Provider] - 08/31/18 10:00 am (1) Sepsis Qualifiers: Sepsis type: sepsis due to unspecified organism Qualified Code(s): A41.9 - Sepsis, unspecified organism (2) Acute respiratory failure Qualifiers: Respiratory failure complication: hypoxia Qualified Code(s): J96.01 - Acute respiratory failure with hypoxia (4) Pneumonia Qualifiers: Pneumonia type: due to unspecified organism Laterality: right Lung location: lower lobe of lung Qualified Code(s): J18.1 - Lobar pneumonia, unspecified organism (6) Hypothyroidism Qualifiers: Hypothyroidism type: unspecified Qualified Code(s): E03.9 - Hypothyroidism, unspecified (8) Diabetes mellitus Qualifiers: Diabetes mellitus type: type 2 Diabetes mellitus senior living insulin use: with senior living use Diabetes mellitus complication status: with unspecified complications Qualified Code(s): E11.8 - Type 2 diabetes mellitus with unspecified complications; Z79.4 - hand drawer in helper (current) use of insulin (9) Syncope Qualifiers: Syncope type: unspecified Qualified Code(s): R55 - Syncope and collapse
[2018-08-27] MEDS: Insulin DETEMIR 100 UNIT/ML X5UNITS SQ SCH (20:01)
[2018-08-27] MEDS: tiZANidine 4 MG TABLET PO PRN (23:34)
[2018-08-28] MEDS: Ipratropium/Albuterol Neb 3 ML IH SCH ×6 (03:52→23:22)
[2018-08-28 05:44] LABS: Basophils # 0.2 K/mcL (0.0-0.2); Basophils % 0.7 %; Eosinophils # 0.6 K/mcL (0.0-0.6); Eosinophils % 2.5 %; Hematocrit 43.9 % (37.5-50.1); Hemoglobin 14.5 g/dL (12.9-16.9); Immature Granulocytes % 3.7 % (0-4); Lymphocytes # 3.7 K/mcL (0.6-4.6); Lymphocytes % 16.8 %; Mean Corpuscular Hemoglobin 30.3 pg (28.0-33.3); Mean Corpuscular Volume 91.6 fL (83.0-100.0); Mean Platelet Volume 9.4 fL (9.4-12.4); Monocytes # 1.4 K/mcL (0.0-1.3); Monocytes % 6.3 %; Neutrophils # 15.5 K/mcL (1.6-8.9); Platelet Count 282 K/mcL (140-400); Red Blood Count 4.79 M/mcL (4.19-5.50); Red Cell Distribution Width 12.2 % (11.5-14.5)
[2018-08-28] MEDS: Piperacillin/Tazobactam 3.375 GM in 0.9 % Sodium Chloride Mini Bag 100 ML IVPB SCH ×2 (06:08→15:35)
[2018-08-28] MEDS: *HR* Heparin 5,000 UNIT/ML VIAL SQ SCH ×2 (06:09→17:49)
[2018-08-28 06:15] LABS: BUN/Creatinine Ratio 12 (6-26); Blood Urea Nitrogen 8 mg/dL (6-20); Calcium 8.8 mg/dL (8.6-10.3); Carbon Dioxide 25 mEq/L (23-29); Chloride 104 mEq/L (98-107); Glucose 88 mg/dL (70-105); Osmolality,Calculated 284 (280-300); Potassium 3.5 mEq/L (3.5-5.1); Sodium 138 mEq/L (136-145); eGFR For Non-African Americans > 60 (> 60)
[2018-08-28] MEDS: Acetaminophen 325 MG TABLET PO PRN ×2 (06:21→15:34)
[2018-08-28] MEDS: Insulin LISPRO 300 UNITS/3 ML VIAL SQ SCH ×7 (08:04→21:19)
[2018-08-28] MEDS: predniSONE 10 MG TABLET PO SCH (08:07)
[2018-08-28] MEDS: Venlafaxine XR (24 HR) 75 MG CAP.ER.24H PO SCH (08:07)
[2018-08-28] MEDS: ALPRAZolam 1 MG TABLET PO PRN ×2 (08:09→15:34)
--- NOTE | 2018-08-28 08:13 | Internal Med Progress Note ---
Hospitalist Progress Note - Encounter Date of Encounter: 08/28/18 Time of Encounter: 08:13 - Subjective Interval History: Pt denies chest pain. He states SOB improved with [place] oxygen. Advised to keep oxygen on at all times. States he is down from 3 PPD of cigarettes to 11/2 pack a day and he is trying to quit. He reports chills but denies fever. Pt has been qualified for home oxygen. - Exam Vitals: Temp Pulse Resp BP Pulse Ox 97.9 F 95 16 120/81 90 08/28/18 07:04 08/28/18 07:04 08/28/18 07:04 08/28/18 07:04 08/28/18 07:04 Exam: Exam: Vital signs: Vital signs stable Gen.: Morbidly obese, in mild respiratory distress. Awake and alert and oriented 3. Head: Atraumatic Eyes: Not pale Neck: Normal inspection Chest: Equal chest wall movement bilaterally Respiratory: Diminished air entry globally, No crackles. Heart: S1, S2, tachycardic, no murmurs gallops or rubs. Abdomen: Obese, non-tender. Extremities: No pedal edema - Assessment and Plan (1) Sepsis Current Visit: Yes Status: Acute Assessment and Plan: Improving Patient met sepsis criteria with fever, tachycardia, tachypnea, leukocytosis and multifocal pneumonia being the source of sepsis. Received one dose of vancomycin and Zosyn in the ER. Afebrile, leukocytosis improving , now 20K, from 36K on arrival We will continue with Zosyn Day 5. Will start on Levaquin 750 mg PO QD today. Nasal MRSA screen negative lactate was normal on admission. Follow cultures. Will check chest x ray due to bump in WBC. WBC up from 17.8 to 26.1 but down again to 22. WBC possibly in part due to prednisone. (2) Acute respiratory failure Current Visit: Yes Status: Acute Assessment and Plan: Acute on chronic hypoxic respiratory failure. Continue oxygen. Pt qualified for home oxygen. Possible DC in am (3) Acute exacerbation of chronic obstructive airways disease Current Visit: Yes Status: Acute Assessment and Plan: Continue duo nebs, antibiotics and steroids. Explained to pt that he needs a few more days on IV antibiotic and that he will be discharged on home oxygen. (4) Pneumonia Current Visit: Yes Status: Acute Assessment and Plan: Management as in sepsis above. Will check chest x ray due to bump in WBC, otherwise pt apears to be clinically improving. DC Zosyn and started on Levaquin (5) PTSD (post-traumatic stress disorder) Current Visit: Yes Status: Chronic Assessment and Plan: Home medications reconciled, continue the same. (6) Hypothyroidism Current Visit: Yes Status: Chronic Assessment and Plan: Continue home medications. (7) Tobacco abuse Current Visit: Yes Status: Chronic Assessment and Plan: Encouraged cessation. Nicotine replacement therapy when necessary. (8) Diabetes mellitus Current Visit: Yes Status: Chronic Assessment and Plan: Uncontrolled, continue Levemir, add prandial insulin, continue sliding scale insulin, patient is tolerating by mouth (9) Syncope Current Visit: Yes Status: Acute Assessment and Plan: Brain MRI unremarkable, carotid ultrasound unremarkable, echocardiogram noted with preserved EF and no wall motion abnormality. Syncopal episode was likely due to hypoxia. (10) Medical non-compliance Current Visit: Yes Status: Acute Assessment and Plan: Pt getting up without informing his nurse. Pulled out IV, and was not wearing his oxygen. Monitor leads where also out of place. DVT Prophylaxis: Subcutaneous heparin - Summary of Assessment and Plan Summary of Assessment and Plan: History of present illness: Dr. [place] Mr. Baltazar is a 57 year old male with significant past medical history of COPD, hypothyroidism, hypertension admitted from the emergency department with concern for sepsis from unknown source. According to the patient today he had 2 syncopal episodes. He states one occurred this afternoon. He states that he had an episode where he felt weak and dizzy and passed out hitting his head on the sink in his back on the side of the tub. This occurred again later in the evening. Patient denies any other prodromal symptoms including chest pain, shortness of breath, headache, abdominal pain, nausea or vomiting. Patient was brought to the emergency department via EMS. When he initially was evaluated he had diffuse wheezing, was given DuoNeb's, steroids and basic laboratory analysis. Labs showed leukocytosis at 32 and chest x-ray with right lower lobe nodule. No focal consolidation was found. He was started on vancomycin and Zosyn due to his fever, tachycardia, leukocytosis and physical exam. Patient had a CT of the head completed with was within normal limits in the emergency department. When I evaluated the patient he was diaphoretic but hemodynamically stable. Remains mildly tachycardic. Denies any chest pain, shortness of breath or abdominal pain. Patient does have a significant smoking history including smoking 3 packs of cigarettes for greater than 10 years and a cumulative smoking history of 47 years. Patient does disclose feeling more depressed recently than normal due to the recent loss of his daughter but denies any suicidal or homicidal ideations. - Time Spent with Patient Total time spent is greater than 50% in coordination of care (as documented) at patient's floor/unit and/or counseling patient: less than 15 minutes Plan of Care Discussed with: patient Internal Medicine: Result - Labs CBC & Chem 7: 08/28/18 05:04 08/28/18 05:04 Labs: Short CBC 08/27/18 08/28/18 Range/Units 10:38 05:04 WBC 26.1 H 22.2 H (4.3-11.1) K/mcL Hgb 15.3 D 14.5 (12.9-16.9) g/dL Hct 45.7 43.9 (37.5-50.1) % Plt Count 305 282 (140-400) K/mcL Neutrophils # 20.7 H 15.5 H (1.6-8.9) K/mcL BMP 08/27/18 08/28/18 10:38 05:04 Sodium 135 L 138 Potassium 3.7 3.5 Chloride 100 104 Carbon Dioxide 25 25 BUN 10 8 Creatinine 0.82 0.66 L Glucose 243 H 88 Calcium 8.7 8.8 Consult Discharge Plan - Plan Referrals: Tammy Bullock, BOAT LOADER HELPER [Primary Care Provider] - 08/31/18 10:00 am (1) Sepsis Qualifiers: Sepsis type: sepsis due to unspecified organism Qualified Code(s): A41.9 - Sepsis, unspecified organism (2) Acute respiratory failure Qualifiers: Respiratory failure complication: hypoxia Qualified Code(s): J96.01 - Acute respiratory failure with hypoxia (4) Pneumonia Qualifiers: Pneumonia type: due to unspecified organism Laterality: right Lung location: lower lobe of lung Qualified Code(s): J18.1 - Lobar pneumonia, unspecified organism (6) Hypothyroidism Qualifiers: Hypothyroidism type: unspecified Qualified Code(s): E03.9 - Hypothyroidism, unspecified (8) Diabetes mellitus Qualifiers: Diabetes mellitus type: type 2 Diabetes mellitus mcc insulin use: with exterminator termite use Diabetes mellitus complication status: with unspecified complic ations Qualified Code(s): E11.8 - Type 2 diabetes mellitus with unspecified complications; Z79.4 - intermediate school teacher (current) use of insulin (9) Syncope Qualifiers: Syncope type: unspecified Qualified Code(s): R55 - Syncope and collapse
[2018-08-28] MEDS: Insulin DETEMIR 100 UNIT/ML X5UNITS SQ SCH (21:26)
[2018-08-29] MEDS: ALPRAZolam 1 MG TABLET PO PRN ×4 (00:13→19:10)
[2018-08-29] MEDS: Ipratropium/Albuterol Neb 3 ML IH SCH ×5 (05:55→20:41)
[2018-08-29] MEDS: *HR* Heparin 5,000 UNIT/ML VIAL SQ SCH ×2 (06:02→16:36)
[2018-08-29] MEDS: Insulin LISPRO 300 UNITS/3 ML VIAL SQ SCH ×7 (08:12→21:45)
[2018-08-29] MEDS: levoFLOXacin 750 MG TABLET PO SCH (08:13)
[2018-08-29] MEDS: Venlafaxine XR (24 HR) 75 MG CAP.ER.24H PO SCH (08:13)
[2018-08-29] MEDS: predniSONE 10 MG TABLET PO SCH (08:14)
[2018-08-29] MEDS: Acetaminophen 325 MG TABLET PO PRN (08:27)
[2018-08-29] MEDS: tiZANidine 4 MG TABLET PO PRN (11:29)
--- NOTE | 2018-08-29 13:05 | Pulmonology Consult Note ---
Date of Encounter: 08/29/18 Time of Encounter: 12:00 Assessment and Plan (1) Acute on chronic respiratory failure with hypoxia Current Visit: Yes Status: Acute I suspect patient has underlying COPD with chronic respiratory failure with hypoxia patient does not use oxygen at home according to him he is supposed to use oxygen at home he does not use it patient will need home oxygen on discharge please do 6 minute walk test and qualify him for home oxygen. (2) Pneumonia Current Visit: Yes Status: Acute Patient has this right lower lobe pneumonia radiologically he is getting better clinically also is getting better to continue the broad-spectrum antibiotics for now to nasal MRSA swab is negative will de-escalate vancomycin and send him home on Augmentin for 10 days and a short steroid taper over 5 days. Will follow-up as outpatient will repeat a CT imaging in 4 weeks to document resolution of this consolidation. Pulmonary we will sign off thank you for the consultation please call with questions if condition changes. I personally spoke with the primary hospitalist and told my recommendation. Qualifiers: Laterality: right Lung location: lower lobe of lung Qualified Code(s): J18.1 - Lobar pneumonia, unspecified organism (3) Suspected chronic obstructive pulmonary disease based on initial evaluation Current Visit: Yes Status: Acute Patient has evidence of small airway disease on the CAT scan will need outpatie nt evaluation for COPD with PFTs and also evaluation of sleep disorder breathing. Will need outpatient pulmonary follow-up for resolution of pneumonia and evaluation of COPD in 2-4 weeks. History of Present Illness Consult date: 08/29/18 Requesting physician: Evangelina Bueno Reason for consult: pneumonia Chief complaint: Fall due to syncope. History of present illness: 57-year-old male worsening with syncope and fall was admitted for a syncopal workup during the workup chest imaging showed right lower lobe pneumonia concerning for worsening pneumonia today and the chest x-ray pulmonary was consulted for concern of worsening pneumonia. Patient said that he had this fall with near syncope denies much cough or sputum production denies any recent aspiration episode denies any recent lung illness. Apart from the syncopal episode denies any chest pain, denies any chest tightness denies any palpitation denies any much fever or chills. Patient denies any active GERD or neuro symptoms. Past Med Surg Social Fam HX - Past Medical History Medical history: asthma, COPD, diabetes Psychiatric history: anxiety, depression, PTSD - Past Surgical History Surgical History: cholecystectomy - Social History Smoking Status: Current every day smoker Smokeless Tobacco Status: No Alcohol use: none Drug use: none - Family History Grandmother Hx Family Cardiac Disorders: Yes Hx Family Endocrine Disorder: Yes (DM) Mother Living Status: Hx Family Respiratory Disorders: Yes (emphysema) Medications and Allergies Levothyroxine [Synthroid] 175 mcg PO DAILY 09/28/17 [History] Albuterol Sulfate [Albuterol Inhaler] 2 puff IH Q4HR PRN #1 hfa.aer.ad 10/03/17 [Rx] Insulin DETEMIR [Levemir Flextouch] 10 unit SQ HS #1 insuln.pen 10/03/17 [Rx] ALPRAZolam [Xanax 1 MG Tablet] 1 mg PO QID PRN 08/24/18 [History] Amitriptyline [Elavil] 50 - 100 mg PO HS 08/24/18 [History] Atorvastatin [Lipitor] 40 mg PO HS 08/24/18 [History] Propranolol [Inderal] 20 mg PO BID 08/24/18 [History] Tizanidine HCl 4 mg PO DAILY PRN 08/24/18 [History] Venlafaxine XR (24 HR) [Effexor XR] 225 mg PO DAILY 08/24/18 [History] Allergy/AdvReac Type Severity Reaction Status Date / Time gabapentin Allergy Rash Verified 10/11/17 02:28 NSAIDS (Non-Steroidal Allergy Itching Verified 10/11/17 02:28 Anti-Inflamma amantadine [From Symmetrel] AdvReac Hallucinati Verified 10/11/17 02:28 ng All Systems: The remainder of the systems were reviewed and are negative Physical Examination Vital Signs: Vital Signs, Last 4 Hours Resp Pulse Ox 08/29/18 11:48 16 97 Auscultation: right: diminished breath sounds, rales (minimal scattered rales ) Results - Laboratory Findings CBC and BMP: 08/28/18 05:04 08/28/18 05:04 Abnormal lab findings: Abnormal lab results WBC 22.2 K/mcL (4.3-11.1) H 08/28/18 05:04 Band Neutrophils % 6.0 % (0-4) H 08/24/18 04:12 Neutrophils # 15.5 K/mcL (1.6-8.9) H 08/28/18 05:04 Monocytes # 1.4 K/mcL (0.0-1.3) H 08/28/18 05:04 Creatinine 0.66 mg/dL (0.70-1.30) L 08/28/18 05:04 POC Glucose 196 mg/dL (70-99) H 08/28/18 11:25 Hemoglobin A1c 11.0 % (-5.6) H 08/23/18 05:03 TSH 0.078 mcIU/mL (0.340-5.600) L 08/23/18 05:03 Ur Specific [place] > 1.030 (1.010-1.025) H 08/23/18 08:21 Urine Glucose (UA) >=1000 mg/dL (Normal) H 08/23/18 08:21 Urine Ketones 80 mg/dL (Negative) H 08/23/18 08:21 Urine Blood Trace (Negative) H 08/23/18 08:21 - Microbiology Findings Microbiology Findings: Microbiology, Last 48 Hours 08/23/18 00:38 Blood Culture - Final Peripheral Venipuncture No growth. Final report. 08/23/18 00:43 Blood Culture - Final Peripheral Venipuncture No growth. Final report. - Clinical Findings Intake & Output: Intake & Output 08/28/18 08/29/18 08/29/18 23:59 07:59 15:59 Intake Total 100 / 100 600 / 600 Output Total 0 / 0 Balance 100 / 100 0 / 0 600 / 600 Weight 137.1 kg Consult Discharge Plan - Plan Referrals: Tammy Bullock, CRIME LAB ANALYST [Primary Care Provider] - 08/31/18 10:00 am
[2018-08-29] MEDS ORDERED: Aminoglycoside Consult 1 EACH MC ONE (13:33)
[2018-08-29] MEDS: Piperacillin/Tazobactam 3.375 GM in 0.9 % Sodium Chloride Mini Bag 100 ML IVPB SCH ×2 (14:16→21:46)
[2018-08-29] MEDS: predniSONE 20 MG TABLET PO SCH (14:18)
--- NOTE | 2018-08-29 19:22 | Internal Med Progress Note ---
Hospitalist Progress Note - Encounter Date of Encounter: 08/29/18 Time of Encounter: 09:00 - Subjective Interval History: Patient feels fine. Denies dizziness/syncope/fall. Denies cough or difficulty breathing. - Exam Vitals: Temp Pulse Resp BP Pulse Ox 98.3 F 90 16 132/81 90 08/29/18 15:28 08/29/18 15:28 08/29/18 15:46 08/29/18 15:28 08/29/18 17:00 Exam: Exam: Vital signs: Vital signs stable Gen.: Morbidly obese, in mild respiratory distress. Awake and alert and oriented 3. Head: Atraumatic Eyes: Not pale Neck: Normal inspection Chest: Equal chest wall movement bilaterally Respiratory: Diminished air entry globally, No crackles. Heart: S1, S2, tachycardic, no murmurs gallops or rubs. Abdomen: Obese, non-tender. Extremities: No pedal edema - Assessment and Plan (1) Acute exacerbation of chronic obstructive airways disease Current Visit: Yes Status: Acute Assessment and Plan: Continue duo nebs, antibiotics and steroids. Pulmonology consult appreciated. Continue antibiotic treatment. Patient may need to be discharged on home oxygen. (2) Acute respiratory failure Current Visit: Yes Status: Acute Assessment and Plan: Acute on chronic hypoxic respiratory failure. Continue oxygen. (3) PTSD (post-traumatic stress disorder) Current Visit: Yes Status: Chronic Assessment and Plan: Home medications reconciled, continue the same. (4) Hypothyroidism Current Visit: Yes Status: Chronic Assessment and Plan: Continue home medications. (5) Tobacco abuse Current Visit: Yes Status: Chronic Assessment and Plan: Encouraged cessation. Nicotine replacement therapy when necessary. (6) Diabetes mellitus Current Visit: Yes Status: Chronic Assessment and Plan: Uncontrolled, continue Levemir, add prandial insulin, continue sliding scale insulin, patient is tolerating by mouth (7) Pneumonia Current Visit: Yes Status: Acute Assessment and Plan: Management as in sepsis above. Pt apears to be clinically improving. CXR shows worsening infiltrate but CT chest shows improvement Pulmonology consult appreciated. Cont vanco/zosyn and levaquin. Pt can be d/c on po augmetin. (8) Syncope Current Visit: Yes Status: Acute Assessment and Plan: Brain MRI unremarkable, Will order echo/duplex carotid B/L. Keep cardiac monitoring. (9) Sepsis Current Visit: Yes Status: Acute Assessment and Plan: Resolved. No further fever/tachycardia/tachypnea, WBC still high, possibly due to steroid use. (10) Medical non-compliance Current Visit: Yes Status: Acute Assessment and Plan: Pt getting up without informing his nurse. Pulled out IV, and was not wearing his oxygen. Monitor leads where also out of place. DVT Prophylaxis: Subcutaneous heparin - Time Spent with Patient Total time spent is greater than 50% in coordination of care (as documented) at patient's floor/unit and/or counseling patient: 30 min 25 - 35 minutes Plan of Care Discussed with: patient Internal Medicine: Result - Labs CBC & Chem 7: 08/28/18 05:04 08/28/18 05:04 - Impressions Impressions Chest X-Ray 08/28/18 18:28 IMPRESSION: Findings as above concerning for worsening pneumonia in the right lung. D/ / Arelis Prakash MD / Arelis Prakash MD Interpreting Provider: Arelis Prakash MD Chest CT 08/29/18 12:49 IMPRESSION: Mild improvement of patchy airspace opacity right lower lobe and right middle lobe over 1 week. Slight worsening of small subsegmental airspace opacity posterior lateral aspect right upper lobe. Multifocal distribution would favor pneumonia over pulmonary edema. Mild reactive precarinal lymphadenopathy. D/ / Edgar Curiel MD / Edgar Curiel MD Interpreting Provider: Edgar Curiel MD Consult Discharge Plan - Plan Referrals: Tammy Bullock, HAM STRINGER [Primary Care Provider] - 08/31/18 10:00 am (2) Acute respiratory failure Qualifiers: Respiratory failure complication: hypoxia Qualified Code(s): J96.01 - Acute respiratory failure with hypoxia (4) Hypothyroidism Qualifiers: Hypothyroidism type: unspecified Qualified Code(s): E03.9 - Hypothyroidism, unspecified (6) Diabetes mellitus Qualifiers: Diabetes mellitus type: type 2 Diabetes mellitus roasterman insulin use: with roasterman use Diabetes mellitus complication status: with unspecified complications Qualified Code(s): E11.8 - Type 2 diabetes mellitus with unspecified complications; Z79.4 - jail (current) use of insulin (7) Pneumonia Qualifiers: Pneumonia type: due to unspecified organism Laterality: right Lung location: lower lobe of lung Qualified Code(s): J18.1 - Lobar pneumonia, unspecified organism (8) Syncope Qualifiers: Syncope type: unspecified Qualified Code(s): R55 - Syncope and collapse (9) Sepsis Qualifiers: Sepsis type: sepsis due to unspecified organism Qualified Code(s): A41.9 - Sepsis, unspecified organism
[2018-08-29] MEDS: Insulin DETEMIR 100 UNIT/ML X5UNITS SQ SCH (21:54)
[2018-08-30] MEDS: Ipratropium/Albuterol Neb 3 ML IH SCH ×4 (00:04→11:30)
[2018-08-30] MEDS: ALPRAZolam 1 MG TABLET PO PRN ×2 (01:44→09:54)
[2018-08-30] MEDS: *HR* Heparin 5,000 UNIT/ML VIAL SQ SCH (06:04)
[2018-08-30] MEDS: Piperacillin/Tazobactam 3.375 GM in 0.9 % Sodium Chloride Mini Bag 100 ML IVPB SCH (06:04)
[2018-08-30 06:20] LABS: Basophils # 0.1 K/mcL (0.0-0.2); Basophils % 0.4 %; Eosinophils # 0.1 K/mcL (0.0-0.6); Eosinophils % 0.4 %; Hematocrit 42.8 % (37.5-50.1); Hemoglobin 14.6 g/dL (12.9-16.9); Lymphocytes # 2.3 K/mcL (0.6-4.6); Lymphocytes % 12.1 %; Mean Corpuscular HGB Conc 34.1 g/dL (31.6-35.5); Mean Corpuscular Hemoglobin 30.5 pg (28.0-33.3); Mean Corpuscular Volume 89.4 fL (83.0-100.0); Mean Platelet Volume 9.5 fL (9.4-12.4); Monocytes # 1.2 K/mcL (0.0-1.3); Monocytes % 6.3 %; Neutrophils # 14.8 K/mcL (1.6-8.9); Platelet Count 313 K/mcL (140-400); Red Blood Count 4.79 M/mcL (4.19-5.50); Red Cell Distribution Width 12.2 % (11.5-14.5); Segmented Neutrophils % 76.8 %
[2018-08-30 06:44] LABS: BUN/Creatinine Ratio 15 (6-26); Blood Urea Nitrogen 9 mg/dL (6-20); Calcium 8.5 mg/dL (8.6-10.3); Carbon Dioxide 21 mEq/L (23-29); Chloride 104 mEq/L (98-107); Glucose 183 mg/dL (70-105); Osmolality,Calculated 283 (280-300); Sodium 135 mEq/L (136-145); eGFR For Non-African Americans > 60 (> 60)
[2018-08-30] MEDS ORDERED: Perflutren Lipid Microsphere 1.3 ML in 0.9 % Sodium Chloride 8.7 ML IVP ONE (08:21)
[2018-08-30] MEDS ORDERED: Perflutren Lipid Microsphere 2 ML VIAL ONE (08:23)
[2018-08-30] MEDS: Insulin LISPRO 300 UNITS/3 ML VIAL SQ SCH ×2 (09:52)
[2018-08-30] MEDS: Venlafaxine XR (24 HR) 75 MG CAP.ER.24H PO SCH (09:53)
[2018-08-30] MEDS: predniSONE 20 MG TABLET PO SCH (09:54)
[2018-08-30] MEDS: levoFLOXacin 750 MG TABLET PO SCH (09:54)
[2018-08-30 09:56] VITALS: BP 130/85
--- NOTE | 2018-08-30 10:16 | Discharge Summary ---
- NOTES TO OUTPATIENT PROVIDER Notes to Outpatient Provider: 1. Pt present with syncope, no further syncope in hospital, Duplex carotid has been done, result is pending, please follow the final result. 2. Cont po augmentin for 10 days and follow up with pulmonology as outpatient. Follow up CBC as pt still has leukocytosis. Orders not resulted at time of discharge: Pending orders 08/29/18 12:52 Culture,Sputum with Gram Stain [RM] Stat Date of Encounter: 08/30/18 Time of Encounter: 09:00 - Discharge Diagnosis (1) Acute exacerbation of chronic obstructive airways disease Priority: Primary Status: Acute (2) Acute respiratory failure Priority: Primary Status: Acute Qualifiers: Respiratory failure complication: hypoxia Qualified Code(s): J96.01 - Acute respiratory failure with hypoxia (3) PTSD (post-traumatic stress disorder) Priority: Secondary Status: Chronic (4) Hypothyroidism Priority: Secondary Status: Chronic Qualifiers: Hypothyroidism type: unspecified Qualified Code(s): E03.9 - Hypothyroidism, unspecified (5) Tobacco abuse Priority: Secondary Status: Chronic (6) Diabetes mellitus Priority: Secondary Status: Chronic Qualifiers: Diabetes mellitus type: type 2 Diabetes mellitus vermin exterminator insulin use: with vermin exterminator use Diabetes mellitus complication status: with unspecified complications Qualified Code(s): E11.8 - Type 2 diabetes mellitus with unspecified complications; Z79.4 - vermin exterminator (current) use of insulin (7) Pneumonia Priority: Primary Status: Acute Qualifiers: Pneumonia type: due to unspecified organism Laterality: right Lung location: lower lobe of lung Qualified Code(s): J18.1 - Lobar pneumonia, unspecified organism (8) Syncope Priority: Primary Status: Acute Qualifiers: Syncope type: unspecified Qualified Code(s): R55 - Syncope and collapse (9) Sepsis Priority: Primary Status: Acute Qualifiers: Sepsis type: sepsis due to unspecified organism Qualified Code(s): A41.9 - Sepsis, unspecified organism (10) Medical non-compliance Priority: Secondary Status: Acute Hospital course: Mr. Baltazar is a 57 year old male presented to ER for syncope. Patient was found hypoxia and chest x-ray shows pneumonia. Patient was treated with Vanco, Zosyn, and Levaquin. His breathing is getting better. Pulmonary consult saw patient, recommended check MRSA swap, which shows negative. Patient will be discharged to home on by mouth Augmentin and follow-up with pulmonology as outpatient. Patient was placed on continuous cardiac monitoring, which does not show arrhythmia. Echo and duplex carotid done, unremarkable. Brain MRI negative. Pt will d/c home with home O2 and po augmentin, f/u pulmonology as outpatient. I have seen and examined this patient today. Patient is awake alert, oriented 3. In no acute distress. Vitals are stable. We will discharge patient home with home oxygen. Continue by mouth Augmentin for 10 days. taper down steroids. Follow-up with PCP and pulmonology as outpatient. Discharge discussed with: patient Time spent discussing smoking cessation with patient: 3 to 10 minutes - Time Spent with Patient Total time spent providing and/or coordinating discharge services: 40 min Greater than 30 minutes - Discharge Medications Prescriptions: predniSONE [PredniSONE] See Taper PO DAILY #6 tablet Home Medications: Levothyroxine [Synthroid] 175 mcg PO DAILY 09/28/17 [History] Albuterol Sulfate [Albuterol Inhaler] 2 puff IH Q4HR PRN #1 hfa.aer.ad 10/03/17 [Rx] Insulin DETEMIR [Levemir Flextouch] 10 unit SQ HS #1 insuln.pen 10/03/17 [Rx] ALPRAZolam [Xanax 1 MG Tablet] 1 mg PO QID PRN 08/24/18 [History] Amitriptyline [Elavil] 50 - 100 mg PO HS 08/24/18 [History] Atorvastatin [Lipitor] 40 mg PO HS 08/24/18 [History] Propranolol [Inderal] 20 mg PO BID 08/24/18 [History] Tizanidine HCl 4 mg PO DAILY PRN 08/24/18 [History] Venlafaxine XR (24 HR) [Effexor XR] 225 mg PO DAILY 08/24/18 [History] Amoxicillin/Clavulanate [Augmentin] 875 mg PO BIDWM 10 Days #20 tablet 08/30/18 [Rx] predniSONE [PredniSONE] See Taper PO DAILY #6 tablet 08/30/18 [Rx] Allergies/Adverse Reactions: Allergy/AdvReac Type Severity Reaction Status Date / Time gabapentin Allergy Rash Verified 10/11/17 02:28 NSAIDS (Non-Steroidal Allergy Itching Verified 10/11/17 02:28 Anti-Inflamma amantadine [From Symmetrel] AdvReac Hallucinati Verified 10/11/17 02:28 ng Date of admission: 08/23/18 12:30 Primary care physician: Tammy Bullock CNP Consults: 08/29/18 12:30 Consult to Pulmonology [CONS] Routine Consulting Provider: [facility] [place] Reason for Consult: Worsening pneumonia Call Completed: Yes Discharging clinician: Evangelina Bueno Anticipated date of discharge: 08/30/18 - Constitutional Vitals: Temp Pulse Resp BP Pulse Ox 98.2 F 93 16 130/85 94 08/30/18 09:37 08/30/18 09:37 08/30/18 09:37 08/30/18 09:37 08/30/18 09:37 Exam: Exam: Vital signs: Vital signs stable Gen.: Morbidly obese, in mild respiratory distress. Awake and alert and oriented 3. Head: Atraumatic Eyes: Not pale Neck: Normal inspection Chest: Equal chest wall movement bilaterally Respiratory: Diminished air entry globally, No crackles/wheezes. Heart: S1, S2, tachycardic, no murmurs gallops or rubs. Abdomen: Obese, non-tender. Extremities: No pedal edema - Patient Status Disposition: Home, Self-Care Condition: Fair Functional capacity at discharge: independent ambulation Overall status at discharge: patient is progressing back to baseline - Discharge Instructions Follow Up With: Tammy Bullock CNP [Primary Care Provider] - 08/31/18 10:00 am - Diet and Activity Activity: increase activity as tolerated Diet: diabetic diet
== END 2018-08-30 13:34 | disposition home or self-care (01) | DRG 871 ==
LOC: EMEROOARM 23:35 → 2NENU 23:35 → 2NNU 08-23 05:29 → 3ANU 08-28 14:04
PROVIDERS: ADMIT Internal Medicine Nephrology; ATTEND Internal Medicine

== ENCOUNTER 2019-09-28 01:45 | Inpatient (IN) ==
[2019-09-28 02:26] LABS: Mean Corpuscular Hemoglobin 20.4 pg (28.0-33.3); Red Cell Distribution Width 17.2 % (11.5-14.5)
[2019-09-28 02:28] LABS: Basophils # 0.1 K/mcL (0.0-0.2); Basophils % 0.7 %; Eosinophils # 0.5 K/mcL (0.0-0.6); Hematocrit 24.5 % (37.5-50.1); Hemoglobin 6.7 g/dL (12.9-16.9); Immature Granulocytes % 0.6 % (0-4); Lymphocytes # 1.4 K/mcL (0.6-4.6); Lymphocytes % 10.9 %; Mean Corpuscular HGB Conc 27.3 g/dL (31.6-35.5); Mean Corpuscular Volume 74.7 fL (83.0-100.0); Mean Platelet Volume 9.8 fL (9.4-12.4); Monocytes # 1.2 K/mcL (0.0-1.3); Monocytes % 9.4 %; Neutrophils # 9.4 K/mcL (1.6-8.9); Nucleated Red Blood Cells 0.4 /100 WBC (0); Platelet Count 420 K/mcL (140-400); Red Blood Count 3.28 M/mcL (4.19-5.50); Segmented Neutrophils % 74.4 %; White Blood Count 12.6 K/mcL (4.3-11.1)
[2019-09-28 02:55] LABS: Alanine Aminotransferase 6 Units/L (7-52); Albumin 3.6 g/dL (3.5-5.7); Alkaline Phosphatase 81 Units/L (34-104); Aspartate Amino Transferase 10 Units/L (13-39); BUN/Creatinine Ratio 7 (6-26); Bilirubin,Direct 0.1 mg/dL (0.0-0.2); Bilirubin,Indirect 0.4 mg/dL (0.0-1.0); Bilirubin,Total 0.5 mg/dL (0.3-1.0); Blood Urea Nitrogen 6 mg/dL (6-20); Calcium 8.7 mg/dL (8.6-10.3); Carbon Dioxide 29 mEq/L (23-29); Chloride 94 mEq/L (98-107); Globulin 3.5 g/dL (2.4-3.5); Glucose 262 mg/dL (70-105); Osmolality,Calculated 285 (280-300); Potassium 3.3 mEq/L (3.5-5.1); Sodium 134 mEq/L (136-145); Total Protein 7.1 g/dL (6.4-8.9); Troponin I < 0.03 ng/mL (< 0.04); eGFR For African Americans > 60 (> 60); eGFR For Non-African Americans > 60 (> 60)
[2019-09-28 03:15] LABS: Anisocytosis 1+ (Not Present); Hypochromasia Present (Not Present); Polychromasia 1+ (Not Present); Stomatocytes 1+ (Not Present)
[2019-09-28] MEDS ORDERED: Azithromycin 500 MG in 0.9 % Sodium Chloride 250 ML IVPB ONE (03:46)
[2019-09-28] MEDS ORDERED: cefTRIAXone 1,000 MG in Water for inj. (sterile) 10 ML IVP ONE (03:47)
[2019-09-28] MEDS ORDERED: 0.9 % Sodium Chloride 1,000 ML IVC ONE (04:00)
[2019-09-28 05:51] LABS: Thyroid Stimulating Hormone 0.642 mcIU/mL (0.340-5.600)
[2019-09-28 05:57] LABS: Bilirubin,Urine Negative (Negative); Blood,Urine Negative (Negative); Clarity,Urine Clear (Clear); Color,Urine Yellow (Yellow); Glucose,Urine (UA) Normal (Normal); Ketones,Urine Trace mg/dL (Negative); Leukocyte Esterase,Urine Negative (Negative); Nitrite,Urine Negative (Negative); Protein,Urine Negative (Neg-Trace); Specific Gravity,Urine 1.012 (1.010-1.025); Urobilinogen,Urine Normal (Normal)
[2019-09-28] MEDS ORDERED: Acetaminophen 325 MG TABLET PO PRN (05:59)
[2019-09-28] MEDS ORDERED: Ondansetron 4 MG/2 ML VIAL IVP PRN (05:59)
[2019-09-28] MEDS ORDERED: Naloxone 0.4 MG/ML INJ IVP PRN (05:59)
[2019-09-28] MEDS ORDERED: 0.9 % Sodium Chloride 1,000 ML IVC SCH (06:00)
[2019-09-28] MEDS ORDERED: D5% in Water 1,000 ML IVC PRN (06:19)
[2019-09-28] MEDS ORDERED: Dextrose Gel 15 GM/37.5 ML TUBE PO PRN ×2 (06:19)
[2019-09-28] MEDS ORDERED: *HR* Dextrose 50 % in Water (Syg) 50 ML SYRINGE IVP PRN (06:19)
[2019-09-28 07:21] LABS: Magnesium 1.7 mg/dL (1.6-2.6)
[2019-09-28 07:26] LABS: Retculocyte # 0.1 M/mcL (0.05-0.10); Reticulocyte % 3.5 % (1.6-2.8)
[2019-09-28 07:27] LABS: INR 1.3; Prothrombin Time 14.5 Seconds (9.4-12.1)
[2019-09-28 07:29] LABS: Basophils # 0.1 K/mcL (0.0-0.2); Basophils % 0.8 %; Eosinophils # 0.5 K/mcL (0.0-0.6); Immature Granulocytes % 0.6 % (0-4); Lymphocytes % 17.2 %; Mean Corpuscular HGB Conc 26.8 g/dL (31.6-35.5); Mean Corpuscular Volume 74.6 fL (83.0-100.0); Mean Platelet Volume 9.8 fL (9.4-12.4); Monocytes # 1.2 K/mcL (0.0-1.3); Monocytes % 10.1 %; Neutrophils # 7.7 K/mcL (1.6-8.9); Nucleated Red Blood Cells 0.3 /100 WBC (0); Platelet Count 376 K/mcL (140-400); Red Blood Count 2.95 M/mcL (4.19-5.50); Red Cell Distribution Width 17.2 % (11.5-14.5); Segmented Neutrophils % 67.3 %; White Blood Count 11.5 K/mcL (4.3-11.1)
[2019-09-28] MEDS ORDERED: Insulin LISPRO 300 UNITS/3 ML VIAL SQ SCH ×3 (07:30→21:00)
[2019-09-28 07:32] LABS: Hemoglobin 5.9 g/dL (12.9-16.9)
[2019-09-28] MEDS: Ipratropium/Albuterol Neb 3 ML IH SCH ×4 (07:37→20:12)
[2019-09-28 07:49] LABS: Anisocytosis 1+ (Not Present); Hypochromasia Present (Not Present); Platelet Estimate Increased (Normal); Poikilocytosis 1+ (Not Present); Polychromasia 1+ (Not Present)
[2019-09-28] MEDS ORDERED: 0.9 % Sodium Chloride 500 ML ONE (07:58)
[2019-09-28] MEDS ORDERED: *HR* Heparin 5,000 UNIT/ML VIAL SQ SCH (08:00)
[2019-09-28] MEDS: cefTRIAXone 1,000 MG in Water for inj. (sterile) 10 ML IVP SCH (08:02)
[2019-09-28 10:18] LABS: Ferritin < 8 ng/mL (20-250); Iron < 10 mcg/dL (65-175); Transferrin 407 mg/dL (203-362)
[2019-09-28] MEDS: MethylPREDNISolone 40 MG/ML VIAL IVP SCH ×2 (10:45→18:51)
[2019-09-28] MEDS: 0.9 % Sodium Chloride 1,000 ML IVC SCH ×2 (10:47→20:41)
[2019-09-28] MEDS: Insulin LISPRO 300 UNITS/3 ML VIAL SQ SCH ×2 (12:17→18:46)
[2019-09-28 15:39] LABS: Adenovirus Not Detected (Not Detect); Bordetella Pertussis Not Detected (Not Detect); Chlamydophila pneumoniae Not Detected (Not Detect); Coronavirus 229E Not Detected (Not Detect); Coronavirus HKU1 Not Detected (Not Detect); Coronavirus NL63 Not Detected (Not Detect); Coronavirus OC43 Not Detected (Not Detect); Human Metapneumovirus Not Detected (Not Detect); Human Rhinovirus/Enterovirus Not Detected (Not Detect); Influenza A Subtype 2009 H1 Not Detected (Not Detect); Influenza B Not Detected (Not Detect); Mycoplasma pneumoniae Not Detected (Not Detect); Parainfluenza Virus 1 Not Detected (Not Detect); Parainfluenza Virus 2 Not Detected (Not Detect); Parainfluenza Virus 3 Not Detected (Not Detect); Parainfluenza Virus 4 Not Detected (Not Detect); Respiratory Syncytial Virus Not Detected (Not Detect)
[2019-09-28 16:35] LABS: Eosinophils % 0.1 %; Mean Platelet Volume 9.6 fL (9.4-12.4); Nucleated Red Blood Cells 0.2 /100 WBC (0); Red Cell Distribution Width 17.9 % (11.5-14.5)
[2019-09-28 16:37] LABS: Basophils # 0.1 K/mcL (0.0-0.2); Basophils % 0.6 %; Hemoglobin 8.4 g/dL (12.9-16.9); Immature Granulocytes % 0.9 % (0-4); Lymphocytes # 0.6 K/mcL (0.6-4.6); Lymphocytes % 6.9 %; Mean Corpuscular Hemoglobin 21.7 pg (28.0-33.3); Mean Corpuscular Volume 74.9 fL (83.0-100.0); Monocytes # 0.2 K/mcL (0.0-1.3); Neutrophils # 7.3 K/mcL (1.6-8.9); Platelet Count 400 K/mcL (140-400); Red Blood Count 3.87 M/mcL (4.19-5.50); Segmented Neutrophils % 89.5 %; White Blood Count 8.1 K/mcL (4.3-11.1)
[2019-09-28 16:40] LABS: Hypochromasia Present (Not Present)
[2019-09-28] MEDS: Pantoprazole 40 MG VIAL IVP SCH (18:51)
[2019-09-28 20:23] LABS: Hematocrit 28.3 % (37.5-50.1); Hemoglobin 8.1 g/dL (12.9-16.9)
[2019-09-28 22:25] LABS: Basophils % 0.1 %; Eosinophils % 0.1 %; Hematocrit 28.8 % (37.5-50.1); Hemoglobin 8.4 g/dL (12.9-16.9); Immature Granulocytes % 0.6 % (0-4); Lymphocytes # 0.5 K/mcL (0.6-4.6); Lymphocytes % 7.2 %; Mean Corpuscular HGB Conc 29.2 g/dL (31.6-35.5); Mean Corpuscular Hemoglobin 21.9 pg (28.0-33.3); Mean Corpuscular Volume 75.2 fL (83.0-100.0); Mean Platelet Volume 9.7 fL (9.4-12.4); Monocytes # 0.1 K/mcL (0.0-1.3); Neutrophils # 6.1 K/mcL (1.6-8.9); Nucleated Red Blood Cells 0.3 /100 WBC (0); Platelet Count 428 K/mcL (140-400); Red Blood Count 3.83 M/mcL (4.19-5.50); Red Cell Distribution Width 17.8 % (11.5-14.5); White Blood Count 6.7 K/mcL (4.3-11.1)
[2019-09-28] MEDS ORDERED: ALPRAZolam 1 MG TABLET PO ONE (22:50)
[2019-09-29] MEDS: Ipratropium/Albuterol Neb 3 ML IH SCH ×7 (00:15→23:56)
[2019-09-29] MEDS: Insulin LISPRO 300 UNITS/3 ML VIAL SQ SCH ×5 (00:40→21:44)
[2019-09-29 03:31] LABS: Hematocrit 27.7 % (37.5-50.1); Hemoglobin 7.8 g/dL (12.9-16.9)
[2019-09-29 03:54] LABS: Magnesium 1.8 mg/dL (1.6-2.6); Phosphorous 1.4 mg/dL (2.7-4.5)
[2019-09-29 03:55] LABS: BUN/Creatinine Ratio 9 (6-26); Blood Urea Nitrogen 6 mg/dL (6-20); Calcium 8.2 mg/dL (8.6-10.3); Carbon Dioxide 25 mEq/L (23-29); Chloride 100 mEq/L (98-107); Glucose 322 mg/dL (70-105); Osmolality,Calculated 288 (280-300); Sodium 134 mEq/L (136-145); eGFR For African Americans > 60 (> 60); eGFR For Non-African Americans > 60 (> 60)
[2019-09-29] MEDS: Pantoprazole 40 MG VIAL IVP SCH (06:06)
[2019-09-29] MEDS: MethylPREDNISolone 40 MG/ML VIAL IVP SCH ×2 (06:07→18:22)
[2019-09-29] MEDS ORDERED: Lidocaine -MPF 2% 2 ML VIAL ONE (08:07)
[2019-09-29] MEDS ORDERED: Propofol 500 MG/50 ML INFUS..BTL ONE (08:11)
[2019-09-29] MEDS: Azithromycin 500 MG in 0.9 % Sodium Chloride 250 ML IVPB SCH (10:14)
[2019-09-29] MEDS: cefTRIAXone 1,000 MG in Water for inj. (sterile) 10 ML IVP SCH (10:15)
[2019-09-29] MEDS: FLUoxetine 20 MG CAPSULE PO SCH (10:15)
[2019-09-29] MEDS: Venlafaxine XR (24 HR) 75 MG CAP.ER.24H PO SCH (10:15)
[2019-09-29] MEDS: Iron Sucrose Complex 250 MG in 0.9 % Sodium Chloride 250 ML IVPB SCH (12:20)
[2019-09-29 13:19] LABS: Acinetobacter baumannii by PCR Not Detected (Not Detect); Enterobacter cloacae Cmplx PCR Not Detected (Not Detect); Enterobacteriaceae by PCR Not Detected (Not Detect); Enterococcus by PCR Not Detected (Not Detect); Escherichia coli by PCR Not Detected (Not Detect); Klebsiella oxytoca by PCR Not Detected (Not Detect); Klebsiella pneumoniae by PCR Not Detected (Not Detect); Proteus by PCR Not Detected (Not Detect); Serratia marcescens by PCR Not Detected (Not Detect); Staphylococcus aureus by PCR Not Detected (Not Detect); Staphylococcus by PCR Not Detected (Not Detect); Streptococcus agalactiae(B)PCR Not Detected (Not Detect); Streptococcus by PCR Not Detected (Not Detect); Streptococcus pneumoniae PCR Not Detected (Not Detect); Streptococcus pyogenes (A) PCR Not Detected (Not Detect)
[2019-09-29 13:20] LABS: Candida albicans by PCR Not Detected (Not Detect); Candida glabrata by PCR Not Detected (Not Detect); Candida krusei by PCR Not Detected (Not Detect); Candida parapsilosis by PCR Not Detected (Not Detect); Candida tropicalis by PCR Not Detected (Not Detect); Pseudomonas aeruginosa by PCR Not Detected (Not Detect)
[2019-09-29] MEDS ORDERED: Insulin DETEMIR 100 UNIT/ML X5UNITS SQ SCH (15:59)
[2019-09-29] MEDS ORDERED: Dextrose Gel 15 GM/37.5 ML TUBE PO PRN ×2 (15:59)
[2019-09-29] MEDS ORDERED: *HR* Dextrose 50 % in Water (Syg) 50 ML SYRINGE IVP PRN (15:59)
[2019-09-29] MEDS ORDERED: D5% in Water 1,000 ML IVC PRN (15:59)
[2019-09-29] MEDS ORDERED: Ringers Solution, Lactated 1,000 ML IVC ONE (16:38)
[2019-09-29] MEDS ORDERED: Ringers Solution, Lactated 1,000 ML ONE (16:41)
[2019-09-29 17:04] LABS: Hematocrit 26.3 % (37.5-50.1); Hemoglobin 7.6 g/dL (12.9-16.9)
[2019-09-29] MEDS: Insulin DETEMIR 100 UNIT/ML X5UNITS SQ SCH (18:56)
[2019-09-29 23:07] LABS: Hematocrit 29.2 % (37.5-50.1); Hemoglobin 8.3 g/dL (12.9-16.9)
[2019-09-30] MEDS ORDERED: *HR* Metoprolol 5 MG/5 ML VIAL IVP ONE ×2 (00:01→02:42)
[2019-09-30 04:21] LABS: Basophils % 0.1 %; Hematocrit 26.7 % (37.5-50.1); Immature Granulocytes % 1.2 % (0-4); Lymphocytes # 1.1 K/mcL (0.6-4.6); Lymphocytes % 5.2 %; Mean Corpuscular Hemoglobin 22.3 pg (28.0-33.3); Mean Corpuscular Volume 74.6 fL (83.0-100.0); Mean Platelet Volume 9.7 fL (9.4-12.4); Monocytes # 0.9 K/mcL (0.0-1.3); Monocytes % 4.5 %; Neutrophils # 18.6 K/mcL (1.6-8.9); Nucleated Red Blood Cells 0.2 /100 WBC (0); Platelet Count 407 K/mcL (140-400); Red Blood Count 3.58 M/mcL (4.19-5.50); Red Cell Distribution Width 18.6 % (11.5-14.5); White Blood Count 20.9 K/mcL (4.3-11.1)
[2019-09-30] MEDS: Ipratropium/Albuterol Neb 3 ML IH SCH ×6 (04:34→23:45)
[2019-09-30 04:39] LABS: BUN/Creatinine Ratio 12 (6-26); Blood Urea Nitrogen 8 mg/dL (6-20); Calcium 8.2 mg/dL (8.6-10.3); Carbon Dioxide 27 mEq/L (23-29); Chloride 99 mEq/L (98-107); Glucose 247 mg/dL (70-105); Magnesium 1.7 mg/dL (1.6-2.6); Osmolality,Calculated 285 (280-300); Potassium 3.4 mEq/L (3.5-5.1); Sodium 134 mEq/L (136-145); eGFR For African Americans > 60 (> 60); eGFR For Non-African Americans > 60 (> 60)
[2019-09-30] MEDS: MethylPREDNISolone 40 MG/ML VIAL IVP SCH (05:12)
[2019-09-30] MEDS: Insulin LISPRO 300 UNITS/3 ML VIAL SQ SCH ×4 (08:25→20:26)
[2019-09-30] MEDS: Insulin DETEMIR 100 UNIT/ML X5UNITS SQ SCH ×2 (08:26→20:57)
[2019-09-30] MEDS: Piperacillin/Tazobactam 3.375 GM in 0.9 % Sodium Chloride Mini Bag 100 ML IVPB SCH ×3 (08:26→22:54)
[2019-09-30] MEDS: Venlafaxine XR (24 HR) 75 MG CAP.ER.24H PO SCH (08:26)
[2019-09-30] MEDS: FLUoxetine 20 MG CAPSULE PO SCH (08:27)
[2019-09-30] MEDS: Azithromycin 500 MG in 0.9 % Sodium Chloride 250 ML IVPB SCH (08:27)
[2019-09-30] MEDS: Nicotine 21 MG PATCH.TD24 TD SCH (11:19)
[2019-09-30] MEDS: Iron Sucrose Complex 250 MG in 0.9 % Sodium Chloride 250 ML IVPB SCH (11:50)
[2019-09-30] MEDS ORDERED: Propofol 500 MG/50 ML INFUS..BTL ONE (20:37)
[2019-09-30] MEDS ORDERED: Lidocaine -MPF 2% 2 ML VIAL ONE (20:38)
[2019-10-01] MEDS ORDERED: *HR* LORazepam 2 MG/ML VIAL IVP ONE (00:20)
[2019-10-01 02:09] LABS: Basophils % 0.2 %; Eosinophils % 0.2 %; Immature Granulocytes % 1.2 % (0-4); Nucleated Red Blood Cells 0.3 /100 WBC (0)
[2019-10-01 02:11] LABS: Hematocrit 27.6 % (37.5-50.1); Hemoglobin 7.8 g/dL (12.9-16.9); Lymphocytes % 11.8 %; Mean Corpuscular HGB Conc 28.3 g/dL (31.6-35.5); Mean Corpuscular Volume 77.7 fL (83.0-100.0); Mean Platelet Volume 9.3 fL (9.4-12.4); Monocytes # 1.7 K/mcL (0.0-1.3); Monocytes % 9.1 %; Platelet Count 350 K/mcL (140-400); Red Blood Count 3.55 M/mcL (4.19-5.50); Red Cell Distribution Width 19.5 % (11.5-14.5); Segmented Neutrophils % 77.5 %
[2019-10-01 02:16] LABS: Lymphocytes # 2.2 K/mcL (0.6-4.6); Neutrophils # 14.7 K/mcL (1.6-8.9)
[2019-10-01 02:30] LABS: BUN/Creatinine Ratio 8 (6-26); Blood Urea Nitrogen 6 mg/dL (6-20); Calcium 8.1 mg/dL (8.6-10.3); Carbon Dioxide 30 mEq/L (23-29); Chloride 102 mEq/L (98-107); Glucose 109 mg/dL (70-105); Magnesium 1.7 mg/dL (1.6-2.6); Osmolality,Calculated 288 (280-300); Potassium 3.1 mEq/L (3.5-5.1); Sodium 140 mEq/L (136-145); eGFR For African Americans > 60 (> 60); eGFR For Non-African Americans > 60 (> 60)
[2019-10-01 02:37] LABS: Hypochromasia Present (Not Present); Ovalocytes 2+ (Not Present); Polychromasia 1+ (Not Present); Stomatocytes 2+ (Not Present)
[2019-10-01 02:38] LABS: Platelet Estimate Normal (Normal)
[2019-10-01] MEDS: Ipratropium/Albuterol Neb 3 ML IH SCH ×2 (03:53→08:14)
[2019-10-01] MEDS: Azithromycin 500 MG in 0.9 % Sodium Chloride 250 ML IVPB SCH (07:42)
[2019-10-01] MEDS: Piperacillin/Tazobactam 3.375 GM in 0.9 % Sodium Chloride Mini Bag 100 ML IVPB SCH ×3 (07:47→23:31)
[2019-10-01] MEDS: FLUoxetine 20 MG CAPSULE PO SCH (07:49)
[2019-10-01] MEDS: Venlafaxine XR (24 HR) 75 MG CAP.ER.24H PO SCH (07:50)
[2019-10-01] MEDS: Nicotine 21 MG PATCH.TD24 TD SCH (07:50)
[2019-10-01] MEDS: Insulin LISPRO 300 UNITS/3 ML VIAL SQ SCH ×4 (08:04→20:43)
[2019-10-01] MEDS: Insulin DETEMIR 100 UNIT/ML X5UNITS SQ SCH ×2 (08:05→20:46)
[2019-10-01] MEDS ORDERED: Ipratropium/Albuterol Neb 3 ML IH PRN (08:13)
[2019-10-01] MEDS ORDERED: predniSONE 20 MG TABLET PO SCH (09:00)
[2019-10-01 10:26] LABS: Estimated Average Glucose 189 mg/dl
[2019-10-02 05:38] LABS: White Blood Count 17.6 K/mcL (4.3-11.1)
[2019-10-02 05:39] LABS: Basophils # 0.1 K/mcL (0.0-0.2); Basophils % 0.3 %; Eosinophils # 0.1 K/mcL (0.0-0.6); Eosinophils % 0.6 %; Hematocrit 29.5 % (37.5-50.1); Hemoglobin 8.6 g/dL (12.9-16.9); Lymphocytes # 2.4 K/mcL (0.6-4.6); Lymphocytes % 13.9 %; Mean Corpuscular HGB Conc 29.2 g/dL (31.6-35.5); Mean Corpuscular Hemoglobin 22.2 pg (28.0-33.3); Mean Corpuscular Volume 76.2 fL (83.0-100.0); Mean Platelet Volume 9.1 fL (9.4-12.4); Monocytes # 1.8 K/mcL (0.0-1.3); Neutrophils # 13.1 K/mcL (1.6-8.9); Nucleated Red Blood Cells 0.2 /100 WBC (0); Platelet Count 382 K/mcL (140-400); Red Blood Count 3.87 M/mcL (4.19-5.50); Red Cell Distribution Width 21.5 % (11.5-14.5); Segmented Neutrophils % 74.2 %
[2019-10-02 05:55] LABS: BUN/Creatinine Ratio 9 (6-26); Blood Urea Nitrogen 7 mg/dL (6-20); Calcium 8.2 mg/dL (8.6-10.3); Carbon Dioxide 27 mEq/L (23-29); Chloride 103 mEq/L (98-107); Glucose 139 mg/dL (70-105); Magnesium 1.9 mg/dL (1.6-2.6); Osmolality,Calculated 288 (280-300); Potassium 3.4 mEq/L (3.5-5.1); Sodium 139 mEq/L (136-145); eGFR For African Americans > 60 (> 60); eGFR For Non-African Americans > 60 (> 60)
[2019-10-02] MEDS: Azithromycin 500 MG in 0.9 % Sodium Chloride 250 ML IVPB SCH (06:35)
[2019-10-02 08:06] VITALS: BP 169/96
[2019-10-02] MEDS: FLUoxetine 20 MG CAPSULE PO SCH (08:24)
[2019-10-02] MEDS: Nicotine 21 MG PATCH.TD24 TD SCH (08:24)
[2019-10-02] MEDS: Venlafaxine XR (24 HR) 75 MG CAP.ER.24H PO SCH (08:25)
[2019-10-02] MEDS: Insulin LISPRO 300 UNITS/3 ML VIAL SQ SCH (08:25)
[2019-10-02] MEDS: Insulin DETEMIR 100 UNIT/ML X5UNITS SQ SCH (08:25)
[2019-10-02] MEDS: Piperacillin/Tazobactam 3.375 GM in 0.9 % Sodium Chloride Mini Bag 100 ML IVPB SCH (08:50)
[2019-10-02] MEDS ORDERED: Aminoglycoside Consult 1 EACH MC ONE (10:23)
== END 2019-10-02 10:24 | disposition home or self-care (01) | DRG 193 ==
LOC: 3BNU 01:45 → EMEROOARM 01:45 → 3BNU 06:05 → SUATTDRO 06:21
PROVIDERS: ADMIT Internal Medicine; ATTEND Pharmacist